=== PATIENT | female | born 1950 | race Caucasian/White ===

== ENCOUNTER 2017-06-10 17:09 | Emergency (ER) | payer SELFPAY ==
[2017-06-10] MEDS ORDERED: Sodium Chloride 0.9% 1000 ML 1,000 ML IV ONE (17:10)
[2017-06-10] MEDS ORDERED: Effient 10 MG TABLET PO ONE (17:10)
[2017-06-10] MEDS ORDERED: Nitrostat 0.4 MG (ED) SL ONE (17:10)
[2017-06-10 17:14] VITALS: BP 162/93; O2SAT 97
[2017-06-10] MEDS ORDERED: LOPRESSOR 5 MG/5 ML INJECTION IV ONE (17:17)
[2017-06-10 17:18] VITALS: PULSE 90
[2017-06-10] MEDS ORDERED: Sodium Chloride 0.9% 1000 ML 1,000 ML ONE (17:19)
[2017-06-10 17:25] LABS: BASOPHIL % 0.5 % (0.0-0.4); Eosinophil % 1.1 % (0.00-5.0); Granulocytes % 70.6 % (36.0-66.0); Lymphocytes % 20.4 % (24.0-44.0); Mean Cell Volume 84.1 fl (78-100); Mean Corpuscular Hemoglobin 25.6 pg (26-32); Mean Platelet Volume 10.3 fl (6-9.5); Monocytes % 7.4 % (0.0-12.0); Platelet Count 325 K/mm3 (150-450); Red Blood Count 4.84 M/mm3 (4.1-5.4); Red Cell Distribution Width 15.6 % (11.5-14.0); White Blood Count 12.1 K/mm3 (4.0-10.5)
--- NOTE | 2017-06-10 17:28 | ERPHSYRPT ---
- History of Present Illness Time Seen by Provider: 06/10/17 17:10 Historian: patient Exam Limitations: clinical condition Patient Subjective Stated Complaint: PT REPROTS INTERMITTANT CHEST PAIN-REPORTS SOB ET DIAPHORESIS-REPORTS PAIN HAS BEEN INTERMITTANT Triage Nursing Assessment: PT PALE WARM ET [id number] NONLABORED-SPEAKING IN COMPLETE SENTECES WITH EASE Physician History: PATIENT WITH A HISTORY OF TYPE 2 DIABETES AND HYPERTENSION COMPLAINS OF SUBSTERNAL CHEST TIGHTNESS FOR 1 WEEK, PAIN RADIATES TO NECK AND LEFT ARM. DENIES DYSPNEA, DIAPHORESIS OR PALPITATIONS. STATES PAIN SCALE 5/10. Timing/Duration: week(s) Activities at Onset: none Quality: tightness Location: substernal Chest Pain Radiation: jaw, neck, arm Severity of Pain-Max: moderate Severity of Pain-Current: moderate Modifying Factors: Improves With: nothing Prior Chest Pain/Cardiac Workup: no prior chest pain Nitro Today/Relief: 0.4 mg x 2 Aspirin Treatment Today: 81 mg x 4, provided at home Allergies/Adverse Reactions: penicillin G Allergy (Severe, Verified 06/10/17 17:14) Home Medications: Lovastatin 20 mg PO DAILY 06/10/17 [History] Metformin HCl 500 mg [Glucophage 500 MG] 500 mg PO DAILY 06/10/17 [History ] Omeprazole 20 MG [Prilosec 20 mg] 20 mg PO DAILY 06/10/17 [History] Tizanidine HCl 4 mg [Zanaflex 4 MG] 4 mg PO DAILY 06/10/17 [History] Valsartan [Diovan] 80 mg PO DAILY 06/10/17 [History] Hx Tetanus, Diphtheria Vaccination/Date Given: No Hx Influenza Vaccination/Date Given: No Hx Pneumococcal Vaccination/Date Given: No Immunizations Up to Date: Yes - Review of Systems Constitutional: No Fever, No Chills Eyes: No Symptoms Ears, Nose, & Throat: No Symptoms Respiratory: No Symptoms, No Cough, No Dyspnea Cardiac: Chest Pain, No Edema, No Syncope Abdominal/Gastrointestinal: No Symptoms, No Abdominal Pain, No Nausea, No Vomiting, No Diarrhea Genitourinary Symptoms: Incontinence, No Dysuria Musculoskeletal: No Symptoms, No Back Pain, No Neck Pain Skin: No Rash Neurological: No Dizziness, No Focal Weakness, No Sensory Changes Psychological: No Symptoms Endocrine: No Symptoms Hematologic/Lymphatic: No Symptoms All Other Systems: Reviewed and Negative - Past Medical History Pertinent Past Medical History: Yes Cardiac History: Hypertension Endocrine Medical History: Diabetes Type II Musculoskeletal History: Fibromyalgia - Past Surgical History Past Surgical History: Yes Musculoskeletal: Orthopedic Surgery - Social History Smoking Status: Never smoker Exposure to second hand smoke: No Drug Use: none Patient Lives Alone: No - Nursing Vital Signs Nursing Vital Signs: Initial Vital Signs Temperature 98.7 F 06/10/17 17:14 Pulse Rate 90 06/10/17 17:14 Respiratory Rate 20 06/10/17 17:14 Blood Pressure 162/93 06/10/17 17:14 O2 Sat by Pulse Oximetry 97 06/10/17 17:14 Pain Scale Pain Intensity 5 - Physical Exam General Appearance: no apparent distress, alert Eye Exam: PERRL/EOMI, eyes nml inspection Ears, Nose, Throat Exam: normal ENT inspection, moist mucous membranes Neck Exam: normal inspection, non-tender, supple, full range of motion Respiratory Exam: normal breath sounds, lungs clear, No respiratory distress Cardiovascular Exam: regular rate/rhythm, normal heart sounds Gastrointestinal/Abdomen Exam: soft, normal bowel sounds (OBESITY), No tenderness, No mass Back Exam: normal inspection, No CVA tenderness, No vertebral tenderness Extremity Exam: normal inspection, normal range of motion Neurologic Exam: alert, oriented x 3, cooperative, normal mood/affect, sensation nml, No motor deficits Skin Exam: normal color, warm, dry SpO2 Interpretation: normal SpO2: 97 Oxygen Delivery: Room Air - Course EKG Interpreted by Me: RATE, Sinus Rhythm, NORMAL AXIS (INFERIOR ST SEGMENT ELEVATION) Ordered Tests: Active Orders 24 hr Category Date Time Status [employer] STAT Care 06/10/17 17:18 Active EKG-ER Only STAT Care 06/10/17 17:17 Active Oxygen-ED Only NASAL CANNULA 2 lpm Care 06/10/17 17:17 Active CBC W DIFF Stat Lab 06/10/17 17:15 Completed CMP Stat Lab 06/10/17 17:15 Received PROTIME WITH INR Stat Lab 06/10/17 17:15 Completed TROPONIN Q3H Lab 06/10/17 17:15 Received TROPONIN Q3H Lab 06/10/17 20:30 Ordered TROPONIN Q3H Lab 06/10/17 23:30 Ordered TROPONIN Q3H Lab 06/11/17 02:30 Ordered TROPONIN Q3H Lab 06/11/17 05:30 Ordered Medication Summary Generic Name Dose Route Start Last Admin Trade Name Alan PRN Reason Stop Dose Admin Sodium Chloride 1,000 mls @ 50 mls/hr 06/10/17 17:30 06/10/17 17:34 Sodium Chloride 0.9% 1000 Ml IV 07/10/17 17:29 50 mls/hr .Q20H CAROLE Administration Discontinued Medications Generic Name Dose Route Start Last Admin Trade Name Freq PRN Reason Stop Dose Admin Metoprolol Tartrate 5 mg 06/10/17 17:17 06/10/17 17:34 Lopressor 5 Mg/5 Ml Injection IV 06/10/17 17:18 5 mg STAT ONE Administration Lab/Rad Data: Laboratory Result Diagrams 06/10/17 17:15 Laboratory Results 06/10/17 06/10/17 Range/Units 17:15 17:15 WBC 12.1 H (4.0-10.5) K/mm3 RBC 4.84 (4.1-5.4) M/mm3 Hgb 12.4 (12.0-16.0) gm/dl Hct 40.7 (35-47) % MCV 84.1 (78-100) fl MCH 25.6 L (26-32) pg MCHC 30.5 L (32-36) g/dl RDW 15.6 H (11.5-14.0) % Plt Count 325 (150-450) K/mm3 MPV 10.3 H (6-9.5) fl Gran % 70.6 H (36.0-66.0) % Lymphocytes % 20.4 L (24.0-44.0) % Monocytes % 7.4 (0.0-12.0) % Eosinophils % 1.1 (0.00-5.0) % Basophils % 0.5 (0.0-0.4) % Basophils # 0.06 (0-0.4) INR 1.18 (0.8-3.0) - Progress Progress Note: 06/10/17 17:32 ADMINISTERED NTG 0.4 SL X 2, IV LOPRESSOR 5MG, Discussed with : Other (DISCUSSED WITH DR HANNA AT 1720 OF [facility] ACCEPTS TRANSFER VIA [facility]) - Departure Time of Disposition: 17:30 Departure Disposition: Transfer Clinical Impression: ACUTE INFERIOR MYOCARDIAL INFARCTION Condition: Stable Critical Care Time: No Critical Care Time(excluding separately billable procedures): ___ minutes (18) Referrals: AVA CORONEL [Primary Care Provider] -
[2017-06-10] MEDS ORDERED: Sodium Chloride 0.9% 1000 ML 1,000 ML IV SCH (17:30)
[2017-06-10 17:31] LABS: INR 1.18 (0.8-3.0); PROTIME 13.1 SECONDS (9.95-12.35)
[2017-06-10 17:40] LABS: ALBUMIN 3.6 g/dL (3.4-5.0); ALKALINE PHOSPHATASE 114 U/L (46-116); ANION GAP 15.1 MEQ/L (5-15); BLOOD UREA NITROGEN 18 mg/dL (9-20); CHLORIDE 103 mEq/L (98-107); Carbon Dioxide 28.7 mEq/L (21-32); Glucose 104 MG/DL (70-110); Potassium 4.3 mEq/L (3.5-5.1); SGOT/AST 68 U/L (15-37); SGPT/ALT 52 U/L (12-78); SODIUM 143 mEq/L (136-145); Total Protein 7.8 gm/dL (6.4-8.2)
== END 2017-06-10 17:27 | disposition short-term general hospital (02) ==
LOC: ED 17:09
DX: I21.19 ST elevation (STEMI) myocardial infarction involving other coronary artery of inferior wall (principal); R07.9 Chest pain, unspecified; I10 Essential (primary) hypertension; E11.9 Type 2 diabetes mellitus without complications; Z79.899 Other long term (current) drug therapy
CPT/HCPCS: 36000; 36415; 80053; 82962; 84484; 85025; 85610; 93005; 93041; 99285; A9270-GY

== ENCOUNTER 2021-06-19 12:59 | Emergency (ER) | payer MEDICARE ==
[2021-06-19] MEDS ORDERED: DECADRON 10MG INJ. IV ONE (13:38)
[2021-06-19 13:49] LABS: Absolute Neutrophil Ct (ANC) 6.38 (1.4-6.9); BASOPHIL % 0.1 % (0.0-0.4); Basophil (Absolute #) 0.01 (0-0.4); Eosinophil (Absolute #) 0 (0-0.5); Hematocrit 37.3 % (35-47); Hemoglobin 10.7 gm/dl (12.0-16.0); Lymphocyte (Absolute #) 0.79 (1.0-4.6); Lymphocytes % 10.7 % (24.0-44.0); Mean Cell Volume 78.2 fl (78-100); Mean Corpuscular Hemoglobin 22.4 pg (26-32); Mean Corpuscular Hgb Concent. 28.7 g/dl (32-36); Mean Platelet Volume 9.9 fl (7.5-11.0); Monocyte (Absolute #) 0.18 (0.0-1.3); Monocytes % 2.4 % (0.0-12.0); Neutrophil % 86.8 % (36.0-66.0); Platelet Count 271 K/mm3 (150-450); Red Blood Count 4.77 M/mm3 (4.1-5.4); Red Cell Distribution Width 18.4 % (11.5-14.0); White Blood Count 7.4 K/mm3 (4.0-10.5)
--- NOTE | 2021-06-19 13:53 | ERPHSYRPT ---
- History of Present Illness Time Seen by Provider: 06/19/21 13:11 Source: patient Exam Limitations: no limitations Patient Subjective Stated Complaint: SOB Triage Nursing Assessment: Patient brought back to ED via w/c and transferred to bed with assist of 1. Patient A+O X3. Patient's skin flushed, warm and dry. Patient complains of SOB that has increased over the past few days. Patient also complains of fever, cough, SOB, bodyaches, headaches, loss of taste/smell. Patient states she took a home covid test on 06/10/2021 which was positive. L ungs clear a/p michael. O2 86% on room air. Patient placed on O2 at 4 liters per n/c. Physician History: 70 years old female with history of coronary artery disease status post stenting, hypertension, diabetes mellitus, GERD, morbid obesity, unvaccinated against COVID-19 presented in the ER with 12 days history of progressively worsening shortness of breath. Patient took home COVID-19 test which came back positive on June 10. Patient reports for the last few days her shortness of breath is getting worse initially with activity and now even at resting and she has been using 5 L oxygen at home which was originally prescribed to her [id number]. She does feel a little better with oxygen but still feel she is not getting enough air. Also have subjective feeling of fever chills malaise, headache, body aches, loss of taste and smell. Denies any chest pain but s oreness because of repeated coughing up minimal productive sputum clear color. Patient's oxygen saturation was 86% on room air on presentation and currently on 5 L with sats around 95%. Timing/Duration: day(s) (12), constant, gradual onset, worse Activities at Onset: activity, rest Severity of Dyspnea-Max: moderate Severity of Dyspnea-Current: moderate Possible Cause: illness exposure Modifying Factors: Improves With: oxygen. Worsens With: coughing, deep breath, exertion Associated Symptoms: cough, chest pain/discomfort, heaviness, painful breathing, productive cough, tightness Allergies/Adverse Reactions: penicillin G Allergy (Severe, Verified 06/19/21 13:11) Home Medications: Lovastatin 20 mg PO DAILY 06/10/17 [History] Metformin HCl 500 mg [Glucophage 500 MG] 500 mg PO DAILY 06/10/17 [History] Omeprazole 20 MG [Prilosec 20 mg] 20 mg PO DAILY 06/10/17 [History] Tizanidine HCl 4 mg [Zanaflex 4 MG] 4 mg PO DAILY 06/10/17 [History] Valsartan [Diovan] 80 mg PO DAILY 06/10/17 [History] Hx Tetanus, Diphtheria Vaccination/Date Given: No Hx Influenza Vaccination/Date Given: No Hx Pneumococcal Vaccination/Date Given: No Immunizations Up to Date: Yes Travel Risk - International Travel Have you traveled outside of the country in past 3 weeks: No - Coronavirus Screening Are you exhibiting any of the following symptoms?: Yes Symptoms: Headaches/Body Aches/Fatigue Close contact with a COVID-19 positive Pt in past 14-21 Days: Yes - Vaccine Status Have you recieved a Covid-19 vaccination: No - Review of Systems Constitutional: Fever, Chills, Fatigue, Weakness Eyes: No Symptoms Ears, Nose, & Throat: Nose Congestion Respiratory: Cough, Dyspnea, Dyspnea on Exertion (SUAREZ), Wheezing Cardiac: Chest Pain Abdominal/Gastrointestinal: No Symptoms Genitourinary Symptoms: No Symptoms Musculoskeletal: Myalgias Skin: No Symptoms Neurological: No Symptoms Psychological: No Symptoms Endocrine: No Symptoms Hematologic/Lymphatic: No Symptoms Immunological/Allergic: No Symptoms - Past Medical History Pertinent Past Medical History: Yes Cardiac History: Hypertension Endocrine Medical History: Diabetes Type II Musculoskeletal History: Fibromyalgia - Past Surgical History Past Surgical History: Yes Musculoskeletal: Orthopedic Surgery - Social History Smoking Status: Never smoker Exposure to second hand smoke: No Drug Use: none Patient Lives Alone: No - Female History Hx Now: No - Nursing Vital Signs Nursing Vital Signs: Initial Vital Signs Temperature 99.1 F 06/19/21 13:12 Pulse Rate 86 06/19/21 13:12 Respiratory Rate 18 06/19/21 13:12 Blood Pressure 129/71 06/19/21 13:12 O2 Sat by Pulse Oximetry 86 L 06/19/21 13:12 Pain Scale Pain Intensity 0 - Physical Exam General Appearance: mild distress, alert Eye Exam: PERRL/EOMI, eyes nml inspection Ears, Nose, Throat Exam: hearing grossly normal, pharyngeal erythema Neck Exam: normal inspection, non-tender, full range of motion Respiratory Exam: diminished breath sounds, crackles/rales, rhonchi, wheezing Cardiovascular/Chest Exam: normal heart sounds, regular rate/rhythm Abdominal/Gastrointestinal Exam: soft, No tenderness Extremity Exam: non-tender, normal range of motion Neurologic Exam: alert, oriented x 3, cooperative Skin Exam: normal color SpO2 Interpretation: hypoxic, O2 applied SpO2: 86 O2 Delivery: Nasal Cannula - Course EKG Interpreted by Me: RATE (83), NORMAL AXIS, NORMAL INTERVALS, Other (Nonspecific T wave changes) Ordered Tests: Active Orders 24 hr Category Date Time Status [employer] STAT Care 06/19/21 13:38 Active EKG-ER Only STAT Care 06/19/21 13:37 Active IV Insertion STAT Care 06/19/21 13:37 Active Oxygen-ED Only Nasal Cannula 5 lpm Care 06/19/21 13:37 Active CHEST 1 VIEW (PORTABLE) Stat Exams 06/19/21 13:37 Taken BLOOD CULTURE Stat Lab 06/19/21 14:10 Received CBC W DIFF Stat Lab 06/19/21 13:45 Completed CMP Stat Lab 06/19/21 13:45 Completed D-DIMER QUANTITATIVE Stat Lab 06/19/21 13:45 Completed Lactic Acid Stat Lab 06/19/21 13:37 Completed Lactic Acid Stat Lab 06/19/21 15:49 Received NT PRO BNP Stat Lab 06/19/21 13:45 Completed TROPONIN Q3H Lab 06/19/21 13:45 Completed TROPONIN Q3H Lab 06/19/21 16:45 Ordered TROPONIN Q3H Lab 06/19/21 19:45 Ordered TROPONIN Q3H Lab 06/19/21 22:45 Ordered TROPONIN Q3H Lab 06/20/21 01:45 Ordered UA W/RFX UR CULTURE Stat Lab 06/19/21 13:37 Ordered Medication Summary Discontinued Medications Generic Name Dose Route Start Last Admin Trade Name Freq PRN Reason Stop Dose Admin Aspirin 324 mg 06/19/21 15:26 06/19/21 15:33 Baby Aspirin 81 Mg Chew PO 06/19/21 15:27 324 mg STAT ONE Administration Aspirin Confirm 06/19/21 15:29 Baby Aspirin 81 Mg Chew Administered 06/19/21 15:30 Dose 324 mg .ROUTE .STK-MED ONE Dexamethasone Sodium Phosphate 6 mg 06/19/21 13:38 06/19/21 13:55 Decadron 10mg Inj. IV 06/19/21 13:39 6 mg STAT ONE Administration Dexamethasone Sodium Phosphate Confirm 06/19/21 13:54 Decadron 10mg Inj. Administered 06/19/21 13:55 Dose 10 mg .ROUTE .[facility] Levofloxacin 500 mg 06/19/21 15:26 06/19/21 15:33 Levofloxacin 250mg Tablet PO 06/19/21 15:27 500 mg STAT ONE Administration Levofloxacin Confirm 06/19/21 15:29 Levofloxacin 250mg Tablet Administered 06/19/21 15:30 Dose 500 mg .ROUTE .[facility] Lab/Rad Data: Laboratory Result Diagrams 06/19/21 13:45 06/19/21 13:45 Laboratory Results 06/19/21 06/19/21 06/19/21 Range/Units 13:45 13:45 13:45 WBC (4.0-10.5) K/mm3 RBC (4.1-5.4) M/mm3 Hgb (12.0-16.0) gm/dl Hct (35-47) % MCV (78-100) fl MCH (26-32) pg MCHC (32-36) g/dl RDW (11.5-14.0) % Plt Count (150-450) K/mm3 MPV (7.5-11.0) fl Gran % (36.0-66.0) % Eos # (Auto) (0-0.5) Absolute Lymphs (auto) (1.0-4.6) Absolute Monos (auto) (0.0-1.3) Lymphocytes % (24.0-44.0) % Monocytes % (0.0-12.0) % Eosinophils % (0.00-5.0) % Basophils % (0.0-0.4) % Absolute Granulocytes (1.4-6.9) Basophils # (0-0.4) D-Dimer 1503 H* (215-500) ng/mL Sodium 140 (137-145) mmol/L Potassium 4.5 (3.5-5.1) mmol/L Chloride 104 (98-107) mmol/L Carbon Dioxide 24 (22-30) mmol/L Anion Gap 16.7 H (5-15) MEQ/L BUN 34 H (7-17) mg/dL Creatinine 1.55 H (0.52-1.04) mg/dL Estimated GFR 35.2 ML/MIN Glucose 123 H (74-106) mg/dL Lactic Acid (0.4-2.0) Calcium 8.8 (8.4-10.2) mg/dL Total Bilirubin 0.70 (0.2-1.3) mg/dL AST 46 H (14-36) U/L ALT 19 (0-35) U/L Alkaline Phosphatase 115 (38-126) U/L Troponin I 0.058 H* (0.000-0.034) ng/mL NT-Pro-B Natriuret Pep 532 (0-900) pg/mL Serum Total Protein 7.5 (6.3-8.2) g/dL Albumin 4.0 (3.5-5.0) g/dL Slides for Path Review 06/19/21 06/19/21 Range/Units 13:45 13:37 WBC 7.4 (4.0-10.5) K/mm3 RBC 4.77 (4.1-5.4) M/mm3 Hgb 10.7 L (12.0-16.0) gm/dl Hct 37.3 (35-47) % MCV 78.2 (78-100) fl MCH 22.4 L (26-32) pg MCHC 28.7 L (32-36) g/dl RDW 18.4 H (11.5-14.0) % Plt Count 271 (150-450) K/mm3 MPV 9.9 (7.5-11.0) fl Gran % 86.8 H (36.0-66.0) % Eos # (Auto) 0 (0-0.5) Absolute Lymphs (auto) 0.79 L (1.0-4.6) Absolute Monos (auto) 0.18 (0.0-1.3) Lymphocytes % 10.7 L (24.0-44.0) % Monocytes % 2.4 (0.0-12.0) % Eosinophils % 0.0 (0.00-5.0) % Basophils % 0.1 (0.0-0.4) % Absolute Granulocytes 6.38 (1.4-6.9) Basophils # 0.01 (0-0.4) D-Dimer (215-500) ng/mL Sodium (137-145) mmol/L Potassium (3.5-5.1) mmol/L Chloride (98-107) mmol/L Carbon Dioxide (22-30) mmol/L Anion Gap (5-15) MEQ/L BUN (7-17) mg/dL Creatinine (0.52-1.04) mg/dL Estimated GFR ML/MIN Glucose (74-106) mg/dL Lactic Acid 1.9 (0.4-2.0) Calcium (8.4-10.2) mg/dL Total Bilirubin (0.2-1.3) mg/dL AST (14-36) U/L ALT (0-35) U/L Alkaline Phosphatase (38-126) U/L Troponin I (0.000-0.034) ng/mL NT-Pro-B Natriuret Pep (0-900) pg/mL Serum Total Protein (6.3-8.2) g/dL Albumin (3.5-5.0) g/dL Slides for Path Review YES - Progress Progress: unchanged Air Movement: poor Progress Note: 06/19/21 15:39 Patient is evaluated for worsening shortness of breath with positive COVID-19 and requiring 4 to 5 L oxygen to keep saturation and mid 90s. She is given IV steroids, work-up showed EKG normal sinus rhythm without any ST elevations. Chest x-ray reviewed by me has bilateral airspace disease more on the right. Official report is pending. Has D-dimer in 1500s and mildly elevated troponin o f 0.058, given aspirin. Patient has mild worsening of renal function from her baseline with a creatinine of 1.5 and GFR of 35. I believe patient needs admission with steroids and possible monoclonal antibodies, antibiotics and VQ scan versus anticoagulation and also trending of cardiac enzymes. Her cardiac enzyme could be secondary to respiratory failure versus PE versus NSTEMI. I have discussed the results and plan of care with patient and her in detail and she/ voiced understanding but refused to stay in the hospital at all or to be transferred anywhere else. Patient states "I cannot stay in the hospital as I have to take care of kids who are under our custody". Discussed with her in detail about the seriousness of condition with bilateral pneumonia and respiratory failure with concern for pulmonary embolism/NSTEMI which would not only lead to worsening of current situation but can lead to which he seems understanding but still wants to leave. I have given her a dose of oral antibiotics and will continue with oral antibiotic/steroid and inhaler, becky garg about blood sugar monitoring. She is advised to find some adult care manager for her kids and may need to return to hospital to be admitted for further evaluation and management of this condition which likely would get worse if not taken care of appropriately at the right time. I have tried to get oxygen for the patient to at least help her breathing at home along with above treatment which is not enough but is better than not having anything as she does not want to be hospitalized at all. Blood Culture(s) Obtained: Yes Antibiotics given: Yes Counseled pt/family regarding: lab results, diagnosis, need for follow-up, rad results - Departure Departure Disposition: AMA Clinical Impression: Pneumonia due to COVID-19 virus, NSTEMI (non-ST elevated myocardial infarction), Elevated d-dimer Respiratory failure Qualifiers: Chronicity: acute Respiratory failure complication: hypoxia Qualified Code(s): J96.01 - Acute respiratory failure with hypoxia Condition: Serious Critical Care Time: No Referrals: AAV CORONEL NP [Primary Care Provider] - (Call tomorrow for reevaluation) Instructions: Coronavirus Disease 2019 (COVID-19) (DC) Additional Instructions: Use oxygen all the time. Continue with steroid and antibiotics. Monitor your blood sugar regularly and if elevated talk to your primary care doctor and may need increased dose of your antidiabetic medications. Return to ER for increasing shortness of breath/cough or if develop chest pain/palpitations/persistent fever etc. you are at high risk for worsening respiratory failure/heart attack/blood clot in lungs, return to ER for reevaluation and needs admission to address these issues. Prescriptions: Dexamethasone [Decadron] 6 mg PO DAILY #5 tablet Albuterol 8 gm Mdi Hfa [Ventolin Hfa MDI] 8 gm IH Q4H #1 inh Azithromycin 250 mg [Zithromax 250 MG TABLET] 250 mg PO ZPACK #6 tablet
[2021-06-19] MEDS ORDERED: DECADRON 10MG INJ. ONE (13:54)
[2021-06-19 14:10] LABS: ANION GAP 16.7 MEQ/L (5-15); BILIRUBIN,TOTAL 0.7 mg/dL (0.2-1.3); Calcium 8.8 mg/dL (8.4-10.2); Creatinine 1 1.55 mg/dL (0.52-1.04); EST GLOMERULAR FILTRATION RATE 35.2 ML/MIN; Potassium 4.5 mmol/L (3.5-5.1); Total Protein 7.5 g/dL (6.3-8.2)
[2021-06-19 14:39] LABS: Slide Review 1 YES
[2021-06-19] MEDS ORDERED: Levofloxacin 250MG Tablet PO ONE (15:26)
[2021-06-19] MEDS ORDERED: BABY ASPIRIN 81 MG CHEW PO ONE (15:26)
[2021-06-19] MEDS ORDERED: BABY ASPIRIN 81 MG CHEW ONE (15:29)
[2021-06-19] MEDS ORDERED: Levofloxacin 250MG Tablet ONE (15:29)
[2021-06-19 15:44] VITALS: O2SAT 86
[2021-06-19 16:35] VITALS: BP 141/72; PULSE 84
--- NOTE | 2021-06-19 19:46 | XRAY ---
Indication: Short of breath. Covid 19. Comparison: June 19, 2017 Portable chest demonstrates new moderate diffuse bilateral airspace disease, right greater than left. No consolidation/large effusion. Heart again borderline enlarged. Bony thorax intact again with moderate degenerative changes.
== END 2021-06-19 18:08 | disposition home or self-care (01) ==
LOC: ED 12:59
DX: J12.82 Pneumonia due to coronavirus disease 2019 (principal); I21.4 Non-ST elevation (NSTEMI) myocardial infarction; R79.1 Abnormal coagulation profile; J96.01 Acute respiratory failure with hypoxia; I25.10 Atherosclerotic heart disease of native coronary artery without angina pectoris; I10 Essential (primary) hypertension; E11.9 Type 2 diabetes mellitus without complications; R51.9 Headache, unspecified; M79.18 Myalgia, other site; R43.8 Other disturbances of smell and taste; R07.9 Chest pain, unspecified; Z79.899 Other long term (current) drug therapy
CPT/HCPCS: 36000; 36415; 71045; 80053; 83605; 83880; 84484; 85025; 85379; 87040; 93005; 93041; 96374; 99284; J1100; A9270-GY

== ENCOUNTER 2024-02-26 19:15 | Observation (INO) | payer MEDICARE ==
[2024-02-26 20:00] LABS: A-aADO2 130; ABG HEMOGLOBIN 4.4; ARTERIAL BLD GAS O2 SATURATION 98.8 % (95-100); ARTERIAL BLOOD GAS BASE EXCESS -9.1 (-2.0-2.0); ARTERIAL BLOOD GAS FIO2 40 %; ARTERIAL BLOOD GAS PCO2 38 mmHg (35-45); ARTERIAL BLOOD GAS PO2 108 mmHg (75-100); ARTERIAL BLOOD GAS pH 7.26 (7.35-7.45); CARBOXYHEMOGLOBIN 1.1 % THgb (0.0-6.9); HCO3- 17.1 (22-28); HGB O2 SAT 96.4 g/dF (94-100); Methhemoglobin 1.4 % (1.4-1.5); paO2 pAO1 0.45
[2024-02-26 20:01] LABS: ABG SITE LRA; ALLEN TEST OK? YES
[2024-02-26 20:03] LABS: Absolute Neutrophil Ct (ANC) 10.92 x10^3/uL (1.56-6.13); BASOPHIL % 0.4 % (0.1-1.2); Basophil (Absolute #) 0.06 x10^3/uL (0.01-0.08); Eosinophil % 0.2 % (0.7-5.8); Eosinophil (Absolute #) 0.03 x10^3/uL (0.04-0.36); Hematocrit 13.9 % (34.1-44.9); IMMATURE GRAN # 0.34 x10^3u/L (0.001-0.031); IMMATURE GRAN % 2.4 % (0.001-0.429); Mean Cell Volume 90.3 fL (79.4-94.8); Mean Corpuscular Hgb Concent. 28.8 g/dL (32.2-35.5); Mean Platelet Volume 8.8 fL (9.4-12.3); Monocyte (Absolute #) 0.92 x10^3/uL (0.24-0.86); Monocytes % 6.4 % (4.7-12.5); NUCLEATED RBC # 0.41 x10^3u/L (0.00-0.012); NUCLEATED RBC % 2.9 % (0.00-0.2); Neutrophil % 76.6 % (34.0-71.1); Platelet Count 314 x10^3/uL (182-369); Red Blood Count 1.54 x10^6/uL (3.93-5.22); Red Cell Distribution Width 17.5 % (11.7-14.4); White Blood Count 14.3 x10^3/uL (3.98-10.04)
[2024-02-26 20:18] LABS: ALBUMIN 3.1 g/dL (3.5-5.0); ALKALINE PHOSPHATASE 69 U/L (38-126); ANION GAP 16.9 MEQ/L (5-15); BLOOD UREA NITROGEN 38 mg/dL (7-17); CHLORIDE 111 mmol/L (98-107); Calcium 8.8 mg/dL (8.4-10.2); Creatinine 1 2.16 mg/dL (0.52-1.04); EST GLOMERULAR FILTRATION RATE 23.8 ML/MIN; ETHYL ALCOHOL < 10 mg/dL (0-10); Glucose 136 mg/dL (74-106); Potassium 4.7 mmol/L (3.5-5.1); SGOT/AST 20 U/L (14-36); SGPT/ALT 14 U/L (0-35); SODIUM 137 mmol/L (135-145); Total Protein 5.8 g/dL (6.3-8.2)
[2024-02-26 20:25] LABS: Carbon Dioxide 15 mmol/L (22-30)
--- NOTE | 2024-02-26 20:47 | ERPHSYRPT ---
- History of Present Illness Time Seen by Provider: 02/26/24 19:20 Source: patient Exam Limitations: no limitations Patient Subjective Stated Complaint: C/O SOB that patient states has been going on for a few days. called EMS and states that patient has been fatigued and SOB all day today. EMS reports that patient was blue upon their arrival to patient's home. Triage Nursing Assessment: Patient arrived by ambulance. She is drowsy, falls asleep often during assessment but easily aroused and answers all questions appropriately. Patient does not appear SOB. 02 sats 98% on room air, 02 applied at 2L per N/C and 02 sats increased to 100%. Patient is pale. Odor of kerosene or some sort of diesel noted upon patient's arrival but has since resolved. BLE wrapped; patient indicates she has wounds to her BLE that are treated by Dr. Mendez. Physician History: 73-year-old female presents emergency department via EMS for evaluation of shortness of breath and fatigue that has been progressive over the past 3 days. Upon EMS arrival patient had cyanotic fingers. Oxygen applied. Upon arrival to our ED patient was sleepy however easily aroused and conversant. Patient denies pain. No chest pain. No active shortness of breath. No nausea vomiting or diaphoresis. Patient has never had a colonoscopy. She reports that she has not observed blood in her stool however patient's states that there is blood in her stool after every bowel movement. He reports that patient has not able to observe the blood due to bad eyesight. He states that patient needs bilateral cataract surgery. produced a photo of blood in toilet after patient's bowel movement Allergies/Adverse Reactions: penicillin G Allergy (Severe, Verified 02/26/24 19:19) Home Medications: Aspirin EC 81 mg [Ecotrin 81 mg] 81 mg PO DAILY 02/27/24 [History] Carvedilol 12.5 mg [Coreg 12.5 mg] 12.5 mg PO DAILY 02/27/24 [History] Clopidogrel Bisulfate [Clopidogrel] 75 mg PO DAILY 02/27/24 [History] Duloxetine HCl [Cymbalta] 60 mg PO DAILY 02/27/24 [History] Empagliflozin [Jardiance] 10 mg PO DAILY 02/27/24 [History] Furosemide 40 mg [Lasix 40 MG] 40 mg PO DAILY 02/27/24 [History] Metformin HCl 500 mg [Glucophage 500 MG] 500 mg PO BID 02/27/24 [History] Nitroglycerin 0.4 mg Tablet [Nitrostat 0.4 MG Tablet] 0.4 mg PO Q5MIN PRN MR X 3 PRN 02/27/24 [History] Potassium Chloride 10 meq PO DAILY 02/27/24 [History] Rosuvastatin Calcium 20 mg PO DAILY 02/27/24 [History] Valsartan 80 mg PO DAILY 02/27/24 [History] Hx Tetanus, Diphtheria Vaccination/Date Given: Yes Hx Influenza Vaccination/Date Given: No Hx Pneumococcal Vaccination/Date Given: No Immunizations Up to Date: Yes Travel Risk - International Travel Have you traveled outside of the country in past 3 weeks: No - Emerging Infectious Disease Are you exhibiting symptoms associated with any current EIDs: Yes Symptoms: Shortness of Breath Comment: fatigue - Review of Systems Constitutional: No Symptoms, No Fever, No Chills Eyes: No Symptoms Ears, Nose, & Throat: No Symptoms Respiratory: No Symptoms, No Cough, No Dyspnea Cardiac: No Symptoms, No Chest Pain, No Edema, No Syncope Abdominal/Gastrointestinal: No Symptoms, No Abdominal Pain, No Nausea, No Vom iting, No Diarrhea Genitourinary Symptoms: No Symptoms, No Dysuria Musculoskeletal: No Symptoms, No Back Pain, No Neck Pain Skin: No Symptoms, No Rash Neurological: No Symptoms, No Dizziness, No Focal Weakness, No Sensory Changes Psychological: No Symptoms Endocrine: No Symptoms Hematologic/Lymphatic: No Symptoms Immunological/Allergic: No Symptoms All Other Systems: Reviewed and Negative - Past Medical History Pertinent Past Medical History: Yes Cardiac History: Coronary Artery Disease, Hypertension, Myocardial Infarction ([place]) Endocrine Medical History: Diabetes Type II Musculoskeletal History: Fibromyalgia Other Medical History: Wounds to BLE that are being treated by Dr. Mendez. Ad Copy Writer: Dr. Mercer - Past Surgical History Past Surgical History: Yes Cardiac: Cardiac Catheterization, Cardiac Stent Musculoskeletal: Orthopedic Surgery Other Surgical History: BACK, HANDS - Social History Smoking Status: Never smoker Exposure to second hand smoke: No Drug Use: none Patient Lives Alone: No - Social Determinants of Health Will the patient participate in the screening: Declined to provide - Nursing Vital Signs Nursing Vital Signs: Initial Vital Signs Temperature 97.4 F 02/26/24 19:15 Pulse Rate 67 02/26/24 19:15 Respiratory Rate 20 02/26/24 19:15 Blood Pressure 74/42 02/26/24 19:15 O2 Sat by Pulse Oximetry 98 02/26/24 19:15 Pain Scale Pain Intensity 0 - Physical Exam General Appearance: no apparent distress, alert Eye Exam: PERRL/EOMI, eyes nml inspection Ears, Nose, Throat Exam: normal ENT inspection, TMs normal, pharynx normal, moist mucous membranes Neck Exam: normal inspection, non-tender, supple, full range of motion Respiratory Exam: normal breath sounds, lungs clear, airway intact, No respiratory distress Cardiovascular Exam: regular rate/rhythm, normal heart sounds, normal peripheral pulses Gastrointestinal/Abdomen Exam: soft, normal bowel sounds, No tenderness, No mass Back Exam: normal inspection, normal range of motion, No CVA tenderness, No vertebral tenderness Extremity Exam: normal inspection, normal range of motion, pelvis stable, other (Addressed chronic lower extremity wounds currently being managed by our buggy runner) Neurologic Exam: alert, oriented x 3, cooperative, normal mood/affect, sensation nml, No motor deficits Skin Exam: normal color, warm, dry, No rash Lymphatic Exam: No adenopathy SpO2 Interpretation: normal SpO2: 100 O2 Delivery: Room Air - Course Nursing assessment & vital signs reviewed: Yes EKG Interpreted by Me: RATE (74 accelerated junctional rhythm), NORMAL AXIS, NORMAL INTERVALS, NORMAL QRS Ordered Tests: Active Orders 24 hr Category Date Time Status Acds Block 1 Operator STAT Care 02/26/24 19:45 Active Cath [Catheter-[place]] STAT Care 02/27/24 01:29 Active EKG-ER Only STAT Care 02/26/24 19:44 Active IV Insertion STAT Care 02/26/24 19:44 Active Pulse Oximetry (ED) STAT Care 02/26/24 19:44 Active ABG [ARTERIAL BLOOD GASES] Stat Lab 02/26/24 19:46 Completed CBC W DIFF Stat Lab 02/26/24 19:55 Completed CMP Stat Lab 02/26/24 19:55 Completed CULTURE,URINE Stat Lab 02/27/24 01:34 Received D-DIMER QUANTITATIVE Stat Lab 02/26/24 19:55 Completed ETHYL ALCOHOL Stat Lab 02/26/24 19:55 Completed Lactic Acid Stat Lab 02/26/24 19:44 Completed Lactic Acid Stat Lab 02/26/24 21:57 Completed NT PRO BNPII Stat Lab 02/26/24 19:55 Completed TROPONIN Q4H Lab 02/26/24 19:55 Completed TROPONIN Q4H Lab 02/26/24 23:20 Completed TROPONIN Q4H Lab 02/27/24 03:45 Ordered UA W/RFX UR CULTURE Stat Lab 02/27/24 01:34 Received Transfer Order Routine Transfer 02/27/24 Ordered Medication Summary Discontinued Medications Generic Name Dose Route Start Last Admin Trade Name Amilcarq PRN Reason Stop Dose Admin Furosemide 20 mg 02/27/24 00:40 02/27/24 00:44 Furosemide 40 Mg/4 Ml Vial IV 02/27/24 00:41 20 mg STAT ONE Administration Furosemide Confirm 02/27/24 00:43 Furosemide 40 Mg/4 Ml Vial Administered 02/27/24 00:44 Dose 40 mg .ROUTE .STK-MED ONE Sodium Chloride Confirm 02/26/24 21:55 Sodium Chloride 0.9% 250 Ml Administered 02/26/24 21:56 Dose 250 mls @ ud IV .STK-MED ONE Pantoprazole Sodium 40 mg 02/26/24 20:56 02/26/24 21:00 Pantoprazole 40 Mg Vial IV 02/26/24 20:57 40 mg STAT ONE Administration Pantoprazole Sodium Confirm 02/26/24 21:00 Pantoprazole 40 Mg Vial Administered 02/26/24 21:01 Dose 40 mg IV .STK-MED ONE Lab/Rad Data: Laboratory Result Diagrams 02/26/24 19:55 02/26/24 19:55 Laboratory Results 02/26/24 02/26/24 02/26/24 Range/Units 23:20 21:57 20:28 WBC (3.98-10.04) x10^3/uL RBC (3.93-5.22) x10^6/uL Hgb (11.2-15.7) g/dL Hct (34.1-44.9) % MCV (79.4-94.8) fL MCH (25.6-32.2) pg MCHC (32.2-35.5) g/dL RDW (11.7-14.4) % Plt Count (182-369) x10^3/uL MPV (9.4-12.3) fL Gran % (34.0-71.1) % Immature Gran % (Auto) (0.001-0.429) % Nucleat RBC Rel Count (0.00-0.2) % Eos # (Auto) (0.04-0.36) x10^3/uL Immature Gran # (Auto) (0.001-0.031) x10^3u/L Absolute Lymphs (auto) (1.18-3.74) x10^3/uL Absolute Monos (auto) (0.24-0.86) x10^3/uL Absolute Nucleated RBC (0.00-0.012) x10^3u/L Lymphocytes % (19.3-51.7) % Monocytes % (4.7-12.5) % Eosinophils % (0.7-5.8) % Basophils % (0.1-1.2) % Absolute Granulocytes (1.56-6.13) x10^3/uL Basophils # (0.01-0.08) x10^3/uL D-Dimer (0.0-0.50) mg/L Puncture Site pCO2 (35-45) mmHg pO2 (75-100) mmHg Base Excess (-2.0-2.0) O2 Saturation (94-100) g/dF ABG pH (7.35-7.45) ABG HCO3 (22-28) ABG O2 Sat (Measured) (95-100) % Quentin Test A-a Gradient a/A Ratio Hemoglobin Carboxyhemoglobin (0.0-6.9) % THgb Methemoglobin (1.4-1.5) % Potassium (3.5-5.1) Temperature C POC O2 Flow Rate % Sodium (135-145) mmol/L Chloride (98-107) mmol/L Carbon Dioxide (22-30) mmol/L Anion Gap (5-15) MEQ/L BUN (7-17) mg/dL Creatinine (0.52-1.04) mg/dL Estimated GFR ML/MIN Glucose (74-106) mg/dL Lactic Acid 1.0 (0.4-2.0) Calcium (8.4-10.2) mg/dL Total Bilirubin (0.2-1.3) mg/dL AST (14-36) U/L ALT (0-35) U/L Alkaline Phosphatase (38-126) U/L Troponin I 0.562 H* (0.000-0.033) ng/mL NT-Pro-B Natriuret Pep (<300) pg/mL Serum Total Protein (6.3-8.2) g/dL Albumin (3.5-5.0) g/dL Ethyl Alcohol (0-10) mg/dL Slides for Path Review ABO Group Rh Factor Antibody Screen (NEGATIVE) Crossmatch COMPATIBLE (COMPATIBLE) 02/26/24 02/26/24 02/26/24 Range/Units 20:28 20:28 19:55 WBC (3.98-10.04) x10^3/uL RBC (3.93-5.22) x10^6/uL Hgb (11.2-15.7) g/dL Hct (34.1-44.9) % MCV (79.4-94.8) fL MCH (25.6-32.2) pg MCHC (32.2-35.5) g/dL RDW (11.7-14.4) % Plt Count (182-369) x10^3/uL MPV (9.4-12.3) fL Gran % (34.0-71.1) % Immature Gran % (Auto) (0.001-0.429) % Nucleat RBC Rel Count (0.00-0.2) % Eos # (Auto) (0.04-0.36) x10^3/uL Immature Gran # (Auto) (0.001-0.031) x10^3u/L Absolute Lymphs (auto) (1.18-3.74) x10^3/uL Absolute Monos (auto) (0.24-0.86) x10^3/uL Absolute Nucleated RBC (0.00-0.012) x10^3u/L Lymphocytes % (19.3-51.7) % Monocytes % (4.7-12.5) % Eosinophils % (0.7-5.8) % Basophils % (0.1-1.2) % Absolute Granulocytes (1.56-6.13) x10^3/uL Basophils # (0.01-0.08) x10^3/uL D-Dimer (0.0-0.50) mg/L Puncture Site pCO2 (35-45) mmHg pO2 (75-100) mmHg Base Excess (-2.0-2.0) O2 Saturation (94-100) g/dF ABG pH (7.35-7.45) ABG HCO3 (22-28) ABG O2 Sat (Measured) (95-100) % Quentin Test A-a Gradient a/A Ratio Hemoglobin Carboxyhemoglobin (0.0-6.9) % THgb Methemoglobin (1.4-1.5) % Potassium (3.5-5.1) Temperature C POC O2 Flow Rate % Sodium (135-145) mmol/L Chloride (98-107) mmol/L Carbon Dioxide (22-30) mmol/L Anion Gap (5-15) MEQ/L BUN (7-17) mg/dL Creatinine (0.52-1.04) mg/dL Estimated GFR ML/MIN Glucose (74-106) mg/dL Lactic Acid (0.4-2.0) Calcium (8.4-10.2) mg/dL Total Bilirubin (0.2-1.3) mg/dL AST (14-36) U/L ALT (0-35) U/L Alkaline Phosphatase (38-126) U/L Troponin I (0.000-0.033) ng/mL NT-Pro-B Natriuret Pep 4680 (<300) pg/mL Serum Total Protein (6.3-8.2) g/dL Albumin (3.5-5.0) g/dL Ethyl Alcohol (0-10) mg/dL Slides for Path Review ABO Group O Rh Factor POSITIVE Antibody Screen NEGATIVE (NEGATIVE) Crossmatch COMPATIBLE COMPATIBLE (COMPATIBLE) 02/26/24 02/26/24 02/26/24 Range/Units 19:55 19:55 19:55 WBC (3.98-10.04) x10^3/uL RBC (3.93-5.22) x10^6/uL Hgb (11.2-15.7) g/dL Hct (34.1-44.9) % MCV (79.4-94.8) fL MCH (25.6-32.2) pg MCHC (32.2-35.5) g/dL RDW (11.7-14.4) % Plt Count (182-369) x10^3/uL MPV (9.4-12.3) fL Gran % (34.0-71.1) % Immature Gran % (Auto) (0.001-0.429) % Nucleat RBC Rel Count (0.00-0.2) % Eos # (Auto) (0.04-0.36) x10^3/uL Immature Gran # (Auto) (0.001-0.031) x10^3u/L Absolute Lymphs (auto) (1.18-3.74) x10^3/uL Absolute Monos (auto) (0.24-0.86) x10^3/uL Absolute Nucleated RBC (0.00-0.012) x10^3u/L Lymphocytes % (19.3-51.7) % Monocytes % (4.7-12.5) % Eosinophils % (0.7-5.8) % Basophils % (0.1-1.2) % Absolute Granulocytes (1.56-6.13) x10^3/uL Basophils # (0.01-0.08) x10^3/uL D-Dimer 1.10 H* (0.0-0.50) mg/L Puncture Site pCO2 (35-45) mmHg pO2 (75-100) mmHg Base Excess (-2.0-2.0) O2 Saturation (94-100) g/dF ABG pH (7.35-7.45) ABG HCO3 (22-28) ABG O2 Sat (Measured) (95-100) % Quentin Test A-a Gradient a/A Ratio Hemoglobin Carboxyhemoglobin (0.0-6.9) % THgb Methemoglobin (1.4-1.5) % Potassium 4.7 (3.5-5.1) Temperature C POC O2 Flow Rate % Sodium 137 (135-145) mmol/L Chloride 111 H (98-107) mmol/L Carbon Dioxide 15 L* (22-30) mmol/L Anion Gap 16.9 H (5-15) MEQ/L BUN 38 H (7-17) mg/dL Creatinine 2.16 H (0.52-1.04) mg/dL Estimated GFR 23.8 ML/MIN Glucose 136 H (74-106) mg/dL Lactic Acid (0.4-2.0) Calcium 8.8 (8.4-10.2) mg/dL Total Bilirubin 0.50 (0.2-1.3) mg/dL AST 20 (14-36) U/L ALT 14 (0-35) U/L Alkaline Phosphatase 69 (38-126) U/L Troponin I 0.617 H* (0.000-0.033) ng/mL NT-Pro-B Natriuret Pep (<300) pg/mL Serum Total Protein 5.8 L (6.3-8.2) g/dL Albumin 3.1 L (3.5-5.0) g/dL Ethyl Alcohol < 10 (0-10) mg/dL Slides for Path Review ABO Group Rh Factor Antibody Screen (NEGATIVE) Crossmatch (COMPATIBLE) 02/26/24 02/26/24 02/26/24 Range/Units 19:55 19:46 19:44 WBC 14.3 H (3.98-10.04) x10^3/uL RBC 1.54 L (3.93-5.22) x10^6/uL Hgb 4.0 L* (11.2-15.7) g/dL Hct 13.9 L (34.1-44.9) % MCV 90.3 (79.4-94.8) fL MCH 26.0 (25.6-32.2) pg MCHC 28.8 L (32.2-35.5) g/dL RDW 17.5 H (11.7-14.4) % Plt Count 314 (182-369) x10^3/uL MPV 8.8 L (9.4-12.3) fL Gran % 76.6 H (34.0-71.1) % Immature Gran % (Auto) 2.4 H (0.001-0.429) % Nucleat RBC Rel Count 2.9 H (0.00-0.2) % Eos # (Auto) 0.03 L (0.04-0.36) x10^3/uL Immature Gran # (Auto) 0.34 H (0.001-0.031) x10^3u/L Absolute Lymphs (auto) 2.00 (1.18-3.74) x10^3/uL Absolute Monos (auto) 0.92 H (0.24-0.86) x10^3/uL Absolute Nucleated RBC 0.41 H (0.00-0.012) x10^3u/L Lymphocytes % 14.0 L (19.3-51.7) % Monocytes % 6.4 (4.7-12.5) % Eosinophils % 0.2 L (0.7-5.8) % Basophils % 0.4 (0.1-1.2) % Absolute Granulocytes 10.92 H (1.56-6.13) x10^3/uL Basophils # 0.06 (0.01-0.08) x10^3/uL D-Dimer (0.0-0.50) mg/L Puncture Site LRA pCO2 38 (35-45) mmHg pO2 108 H (75-100) mmHg Base Excess -9.1 L (-2.0-2.0) O2 Saturation 96.4 (94-100) g/dF ABG pH 7.26 L (7.35-7.45) ABG HCO3 17.1 L (22-28) ABG O2 Sat (Measured) 98.8 (95-100) % Quentin Test YES A-a Gradient 130 a/A Ratio 0.45 Hemoglobin 4.4 L* Carboxyhemoglobin 1.1 (0.0-6.9) % THgb Methemoglobin 1.4 (1.4-1.5) % Potassium 5.0 (3.5-5.1) Temperature 37.0 C POC O2 Flow Rate 40 % Sodium (135-145) mmol/L Chloride (98-107) mmol/L Carbon Dioxide (22-30) mmol/L Anion Gap (5-15) MEQ/L BUN (7-17) mg/dL Creatinine (0.52-1.04) mg/dL Estimated GFR ML/MIN Glucose (74-106) mg/dL Lactic Acid 2.8 H (0.4-2.0) Calcium (8.4-10.2) mg/dL Total Bilirubin (0.2-1.3) mg/dL AST (14-36) U/L ALT (0-35) U/L Alkaline Phosphatase (38-126) U/L Troponin I (0.000-0.033) ng/mL NT-Pro-B Natriuret Pep (<300) pg/mL Serum Total Protein (6.3-8.2) g/dL Albumin (3.5-5.0) g/dL Ethyl Alcohol (0-10) mg/dL Slides for Path Review YES ABO Group Rh Factor Antibody Screen (NEGATIVE) Crossmatch (COMPATIBLE) - Progress Progress: improved Progress Note: Case discussed with Dr. Olmos who accepts admission to observation. However we decided that we would obtain troponin #2 prior to transfer to floor to assure that the troponin is trending downward. Troponin #2 obtain. Troponin is trending downward. Patient completed her first unit of PRBC. She appears to be feeling well. Troponin improved from 0.617-0.5 6 2. Lactic acid improved from 2.8-1.0. Patient had not urinated since arrival to our ED. A [place] catheter been placed. D-dimer was ordered as patient complained of shortness of breath however the shortness of breath is well explained via profound anemia. D-dimer positive. However patient not a candidate for CTA due to diminished GFR. Patient not a candidate for anticoagulation due to GI bleed. Patient is improving gradually. It is unlikely patient has a PE. However I discussed this with hospitalist. A VQ scan will be his discretion. Plan of care discussed with patient. She agrees to admission [facility] for further evaluation and treatment. Blood pressure 100/55. MAP of 70. Heart rate 76 O2 sat 100% on 2 L nasal cannula. 02/27/24 01:02 Complexity problem addressed is high, threat to bodily function. Critical care time is greater than 194 minutes. Patient receiving critical care for over 7 hours since arrival to our ED. Patient with profound symptomatic anemia with elevated troponin. Immediate action indicated to prevent further deterioration Complexity of data reviewed and analyzed is extensive. Test ordered test reviewed results analyzed and correlated clinically with history and physical examination. Management discussed with hospitalist who accepts admission to observation. Risk of complication and or risk of morbidity/mortality of patient management is high. Patient requires hospitalization for further evaluation and treatment. Vital stable. Time spent admit patient is approximately 30 minutes. Plan of care established for shared decision making. No social determinants of health present impede follow-up. Portions of this note were created with voice recognition technology. There may be grammatical, spelling, punctuation or sound alike errors 02/27/24 01:57 Counseled pt/family regarding: lab results, diagnosis - Departure Departure Disposition: Observation Clinical Impression: Leukocytosis, Normocytic anemia, Lactic acidosis, High anion gap metabolic acidosis, GI bleed, Elevated troponin, Acute renal injury Condition: Stable Critical Care Time: No Referrals: [facility] [Primary Care Provider] - Follow up/PCP as directed
[2024-02-26] MEDS: PROTONIX 40 MG IV IV ONE (21:00)
[2024-02-26] MEDS ORDERED: PROTONIX 40 MG IV IV ONE (21:00)
[2024-02-26] MEDS ORDERED: Sodium Chloride 0.9% 250 ML 250 ML IV ONE (21:55)
[2024-02-26 22:18] LABS: ABO TYPING O; Antibody Screen NEGATIVE (NEGATIVE); RH TYPING POSITIVE
[2024-02-26 22:22] LABS: CROSS MATCH (PRBC) COMPATIBLE (COMPATIBLE)
[2024-02-26 22:23] LABS: CROSS MATCH (PRBC) COMPATIBLE (COMPATIBLE)
[2024-02-26 22:24] LABS: CROSS MATCH (PRBC) COMPATIBLE (COMPATIBLE)
[2024-02-27 00:01] LABS: Slide Review 1 YES
--- NOTE | 2024-02-27 00:41 | PCM.HP ---
History of Present Illness - Chief Complaint Chief Complaint: weakness Date: 02/26/24 History of Present Illness: Ms. CLOUD is a 73 year old female with a past medical history significant for hypertension, hyperlipidemia and obesity who was brought to the ER by her hus band with complaints of severe weakness and lethargy. She reportedly has bad eyesight but noted that she has been passing dark/bloody stools. Upon arrival, she was found to be markedly anemic with a hemoglobin of 4.5 and a creatinine of 2.15 associated with a bicarb of 17. She is resting in bed, lethargic but arousable. She is difficult to obtain a full history from, but apparently this has been going on for a while. Initial troponin was slightly elevated with some ischemic changes on EKG but she denies any chest pain, shortness of breath or palpitations. - Review of Systems Constitutional: Fatigue, Lethargy, Malaise Eyes: No Vision Changes Ears, Nose, & Throat: No Nose Discharge, No Sinus Drainage Respiratory: No Orthopnea, No Short Of Breath Cardiac: No Chest Pain, No Edema, No Palpitations Abdominal/Gastrointestinal: No Abdominal Pain, No Nausea, No Vomiting Genitourinary Symptoms: No Dysuria, No Frequency, No Hematuria Musculoskeletal: No Arthralgias, No Back Pain Skin: No Cellulitis, No Rash Neurological: No Dizziness, No Focal Weakness Psychological: No Suicidal Ideations Endocrine: No Polyuria, No Polydipsia Hematologic/Lymphatic: No Easy Bleeding, No Easy Bruising Medications & Allergies Home Medications: Home Medication List Unobtainable 02/26/24 [History Confirmed 02/26/24] Allergies/Adverse Reactions: Allergies Allergy/AdvReac Type Severity Reaction Status Date / Time penicillin G Allergy Severe Verified 02/26/24 19:19 - Past Medical History Past Medical History: Yes Cardiac History: Coronary Artery Disease, Hypertension, Myocardial Infarction (NE) Endocrine Medical History: Diabetes Type II Musculoskelatal History: Fibromyalgia Comment: Wounds to BLE that are being treated by Dr. Mendez. Sock Lining Examiner: Dr. Mercer - Past Surgical History Past Surgical History: Yes Cardiac History: Cardiac Catheterization, Cardiac Stent Musculskeletal Surgical Hx: Orthopedic Surgery Other Surgical History: BACK, HANDS - Social History Smoking Status: Never smoker Exposure to second hand smoke: No Alcohol: None Drug Use: none - Social Determinants of Health Will the patient participate in the screening: Declined to provide - Physical Exam Vital Signs: Vital Signs - 24 hr Temp Pulse Resp BP BP Pulse Ox 02/27/24 00:00 77 20 83/38 100 02/26/24 23:45 76 19 79/50 100 02/26/24 23:30 86 19 89/49 99 02/26/24 23:27 79 24 85/51 100 02/26/24 23:15 76 21 83/55 100 02/26/24 23:00 77 21 88/44 02/26/24 22:54 79 21 83/55 100 02/26/24 22:45 78 33 H 81/50 100 02/26/24 22:34 79 30 H 83/50 100 02/26/24 22:30 79 32 H 82/46 99 02/26/24 22:00 78 20 83/47 90 L 02/26/24 21:34 100 02/26/24 21:30 79 26 H 81/50 99 02/26/24 21:00 78 22 75/44 99 02/26/24 20:37 76 29 H 80/44 100 02/26/24 20:30 76/36 02/26/24 20:15 76 25 H 73/47 100 02/26/24 20:00 76 24 74/47 98 02/26/24 19:44 99 02/26/24 19:30 70 25 H 72/45 99 02/26/24 19:15 97.4 F 67 20 74/42 98 General Appearance: no apparent distress Neurologic Exam: disoriented Ears, Nose, Throat Exam: dry mucous membranes Neck Exam: supple Respiratory Exam: No respiratory distress Cardiovascular Exam: regular rate/rhythm Gastrointestinal/Abdomen Exam: soft Extremity Exam: No pedal edema, No swelling Skin Exam: warm, dry, No rash Results - Labs Lab/Micro Results: Lab Results-Last 24 Hours 02/26/24 02/26/24 02/26/24 Range/Units 19:44 19:46 19:55 WBC 14.3 H (3.98-10.04) x10^3/uL RBC 1.54 L (3.93-5.22) x10^6/uL Hgb 4.0 L* (11.2-15.7) g/dL Hct 13.9 L (34.1-44.9) % MCV 90.3 (79.4-94.8) fL MCH 26.0 (25.6-32.2) pg MCHC 28.8 L (32.2-35.5) g/dL RDW 17.5 H (11.7-14.4) % Plt Count 314 (182-369) x10^3/uL MPV 8.8 L (9.4-12.3) fL Gran % 76.6 H (34.0-71.1) % Immature Gran % (Auto) 2.4 H (0.001-0.429) % Nucleat RBC Rel Count 2.9 H (0.00-0.2) % Eos # (Auto) 0.03 L (0.04-0.36) x10^3/uL Immature Gran # (Auto) 0.34 H (0.001-0.031) x10^3u/L Absolute Lymphs (auto) 2.00 (1.18-3.74) x10^3/uL Absolute Monos (auto) 0.92 H (0.24-0.86) x10^3/uL Absolute Nucleated RBC 0.41 H (0.00-0.012) x10^3u/L Lymphocytes % 14.0 L (19.3-51.7) % Monocytes % 6.4 (4.7-12.5) % Eosinophils % 0.2 L (0.7-5.8) % Basophils % 0.4 (0.1-1.2) % Absolute Granulocytes 10.92 H (1.56-6.13) x10^3/uL Basophils # 0.06 (0.01-0.08) x10^3/uL D-Dimer (0.0-0.50) mg/L Puncture Site LRA pCO2 38 (35-45) mmHg pO2 108 H (75-100) mmHg Base Excess -9.1 L (-2.0-2.0) O2 Saturation 96.4 (94-100) g/dF ABG pH 7.26 L (7.35-7.45) ABG HCO3 17.1 L (22-28) ABG O2 Sat (Measured) 98.8 (95-100) % Quentin Test YES A-a Gradient 130 a/A Ratio 0.45 Hemoglobin 4.4 L* Carboxyhemoglobin 1.1 (0.0-6.9) % THgb Methemoglobin 1.4 (1.4-1.5) % Potassium 5.0 (3.5-5.1) Temperature 37.0 C POC O2 Flow Rate 40 % Sodium (135-145) mmol/L Chloride (98-107) mmol/L Carbon Dioxide (22-30) mmol/L Anion Gap (5-15) MEQ/L BUN (7-17) mg/dL Creatinine (0.52-1.04) mg/dL Estimated GFR ML/MIN Glucose (74-106) mg/dL Lactic Acid 2.8 H (0.4-2.0) Calcium (8.4-10.2) mg/dL Total Bilirubin (0.2-1.3) mg/dL AST (14-36) U/L ALT (0-35) U/L Alkaline Phosphatase (38-126) U/L Troponin I (0.000-0.033) ng/mL NT-Pro-B Natriuret Pep (<300) pg/mL Serum Total Protein (6.3-8.2) g/dL Albumin (3.5-5.0) g/dL Ethyl Alcohol (0-10) mg/dL Slides for Path Review YES ABO Group Rh Factor Antibody Screen (NEGATIVE) Crossmatch (COMPATIBLE) 02/26/24 02/26/24 02/26/24 Range/Units 19:55 19:55 19:55 WBC (3.98-10.04) x10^3/uL RBC (3.93-5.22) x10^6/uL Hgb (11.2-15.7) g/dL Hct (34.1-44.9) % MCV (79.4-94.8) fL MCH (25.6-32.2) pg MCHC (32.2-35.5) g/dL RDW (11.7-14.4) % Plt Count (182-369) x10^3/uL MPV (9.4-12.3) fL Gran % (34.0-71.1) % Immature Gran % (Auto) (0.001-0.429) % Nucleat RBC Rel Count (0.00-0.2) % Eos # (Auto) (0.04-0.36) x10^3/uL Immature Gran # (Auto) (0.001-0.031) x10^3u/L Absolute Lymphs (auto) (1.18-3.74) x10^3/uL Absolute Monos (auto) (0.24-0.86) x10^3/uL Absolute Nucleated RBC (0.00-0.012) x10^3u/L Lymphocytes % (19.3-51.7) % Monocytes % (4.7-12.5) % Eosinophils % (0.7-5.8) % Basophils % (0.1-1.2) % Absolute Granulocytes (1.56-6.13) x10^3/uL Basophils # (0.01-0.08) x10^3/uL D-Dimer 1.10 H* (0.0-0.50) mg/L Puncture Site pCO2 (35-45) mmHg pO2 (75-100) mmHg Base Excess (-2.0-2.0) O2 Saturation (94-100) g/dF ABG pH (7.35-7.45) ABG HCO3 (22-28) ABG O2 Sat (Measured) (95-100) % Quentin Test A-a Gradient a/A Ratio Hemoglobin Carboxyhemoglobin (0.0-6.9) % THgb Methemoglobin (1.4-1.5) % Potassium 4.7 (3.5-5.1) Temperature C POC O2 Flow Rate % Sodium 137 (135-145) mmol/L Chloride 111 H (98-107) mmol/L Carbon Dioxide 15 L* (22-30) mmol/L Anion Gap 16.9 H (5-15) MEQ/L BUN 38 H (7-17) mg/dL Creatinine 2.16 H (0.52-1.04) mg/dL Estimated GFR 23.8 ML/MIN Glucose 136 H (74-106) mg/dL Lactic Acid (0.4-2.0) Calcium 8.8 (8.4-10.2) mg/dL Total Bilirubin 0.50 (0.2-1.3) mg/dL AST 20 (14-36) U/L ALT 14 (0-35) U/L Alkaline Phosphatase 69 (38-126) U/L Troponin I 0.617 H* (0.000-0.033) ng/mL NT-Pro-B Natriuret Pep (<300) pg/mL Serum Total Protein 5.8 L (6.3-8.2) g/dL Albumin 3.1 L (3.5-5.0) g/dL Ethyl Alcohol < 10 (0-10) mg/dL Slides for Path Review ABO Group Rh Factor Antibody Screen (NEGATIVE) Crossmatch (COMPATIBLE) 02/26/24 02/26/24 02/26/24 Range/Units 19:55 20:28 20:28 WBC (3.98-10.04) x10^3/uL RBC (3.93-5.22) x10^6/uL Hgb (11.2-15.7) g/dL Hct (34.1-44.9) % MCV (79.4-94.8) fL MCH (25.6-32.2) pg MCHC (32.2-35.5) g/dL RDW (11.7-14.4) % Plt Count (182-369) x10^3/uL MPV (9.4-12.3) fL Gran % (34.0-71.1) % Immature Gran % (Auto) (0.001-0.429) % Nucleat RBC Rel Count (0.00-0.2) % Eos # (Auto) (0.04-0.36) x10^3/uL Immature Gran # (Auto) (0.001-0.031) x10^3u/L Absolute Lymphs (auto) (1.18-3.74) x10^3/uL Absolute Monos (auto) (0.24-0.86) x10^3/uL Absolute Nucleated RBC (0.00-0.012) x10^3u/L Lymphocytes % (19.3-51.7) % Monocytes % (4.7-12.5) % Eosinophils % (0.7-5.8) % Basophils % (0.1-1.2) % Absolute Granulocytes (1.56-6.13) x10^3/uL Basophils # (0.01-0.08) x10^3/uL D-Dimer (0.0-0.50) mg/L Puncture Site pCO2 (35-45) mmHg pO2 (75-100) mmHg Base Excess (-2.0-2.0) O2 Saturation (94-100) g/dF ABG pH (7.35-7.45) ABG HCO3 (22-28) ABG O2 Sat (Measured) (95-100) % Quentin Test A-a Gradient a/A Ratio Hemoglobin Carboxyhemoglobin (0.0-6.9) % THgb Methemoglobin (1.4-1.5) % Potassium (3.5-5.1) Temperature C POC O2 Flow Rate % Sodium (135-145) mmol/L Chloride (98-107) mmol/L Carbon Dioxide (22-30) mmol/L Anion Gap (5-15) MEQ/L BUN (7-17) mg/dL Creatinine (0.52-1.04) mg/dL Estimated GFR ML/MIN Glucose (74-106) mg/dL Lactic Acid (0.4-2.0) Calcium (8.4-10.2) mg/dL Total Bilirubin (0.2-1.3) mg/dL AST (14-36) U/L ALT (0-35) U/L Alkaline Phosphatase (38-126) U/L Troponin I (0.000-0.033) ng/mL NT-Pro-B Natriuret Pep 4680 (<300) pg/mL Serum Total Protein (6.3-8.2) g/dL Albumin (3.5-5.0) g/dL Ethyl Alcohol (0-10) mg/dL Slides for Path Review ABO Group O Rh Factor POSITIVE Antibody Screen NEGATIVE (NEGATIVE) Crossmatch COMPATIBLE COMPATIBLE (COMPATIBLE) 02/26/24 02/26/24 02/26/24 Range/Units 20:28 21:57 23:20 WBC (3.98-10.04) x10^3/uL RBC (3.93-5.22) x10^6/uL Hgb (11.2-15.7) g/dL Hct (34.1-44.9) % MCV (79.4-94.8) fL MCH (25.6-32.2) pg MCHC (32.2-35.5) g/dL RDW (11.7-14.4) % Plt Count (182-369) x10^3/uL MPV (9.4-12.3) fL Gran % (34.0-71.1) % Immature Gran % (Auto) (0.001-0.429) % Nucleat RBC Rel Count (0.00-0.2) % Eos # (Auto) (0.04-0.36) x10^3/uL Immature Gran # (Auto) (0.001-0.031) x10^3u/L Absolute Lymphs (auto) (1.18-3.74) x10^3/uL Absolute Monos (auto) (0.24-0.86) x10^3/uL Absolute Nucleated RBC (0.00-0.012) x10^3u/L Lymphocytes % (19.3-51.7) % Monocytes % (4.7-12.5) % Eosinophils % (0.7-5.8) % Basophils % (0.1-1.2) % Absolute Granulocytes (1.56-6.13) x10^3/uL Basophils # (0.01-0.08) x10^3/uL D-Dimer (0.0-0.50) mg/L Puncture Site pCO2 (35-45) mmHg pO2 (75-100) mmHg Base Excess (-2.0-2.0) O2 Saturation (94-100) g/dF ABG pH (7.35-7.45) ABG HCO3 (22-28) ABG O2 Sat (Measured) (95-100) % Quentin Test A-a Gradient a/A Ratio Hemoglobin Carboxyhemoglobin (0.0-6.9) % THgb Methemoglobin (1.4-1.5) % Potassium (3.5-5.1) Temperature C POC O2 Flow Rate % Sodium (135-145) mmol/L Chloride (98-107) mmol/L Carbon Dioxide (22-30) mmol/L Anion Gap (5-15) MEQ/L BUN (7-17) mg/dL Creatinine (0.52-1.04) mg/dL Estimated GFR ML/MIN Glucose (74-106) mg/dL Lactic Acid 1.0 (0.4-2.0) Calcium (8.4-10.2) mg/dL Total Bilirubin (0.2-1.3) mg/dL AST (14-36) U/L ALT (0-35) U/L Alkaline Phosphatase (38-126) U/L Troponin I 0.562 H* (0.000-0.033) ng/mL NT-Pro-B Natriuret Pep (<300) pg/mL Serum Total Protein (6.3-8.2) g/dL Albumin (3.5-5.0) g/dL Ethyl Alcohol (0-10) mg/dL Slides for Path Review ABO Group Rh Factor Antibody Screen (NEGATIVE) Crossmatch COMPATIBLE (COMPATIBLE) Assessment/Plan (1) Acute renal injury Current Visit: Yes Status: Acute Assessment & Plan: Likely from prerenal azotemia related to severe anemia but should rule out dysproteinemia such as MM/amyloidosis given anemia 1. Renal u/s 2. SPEP/UPEP 3. IVFs 4. Check urine lytes, urine creatinine 5. Follow I/Os 6. Watch electrolytes, creatinine closely Code(s): N17.9 - ACUTE KIDNEY FAILURE, UNSPECIFIED (2) Elevated troponin Current Visit: Yes Status: Acute Assessment & Plan: Likely from severe anemia -> ischemia in setting of SUSANNA 1. Trend troponin 2. Telemetry 3. Defer ASA with anemia/possibility of GI bleed Code(s): R79.89 - OTHER SPECIFIED ABNORMAL FINDINGS OF BLOOD CHEMISTRY (3) Lactic acidosis Current Visit: Yes Status: Acute Assessment & Plan: Likely from SUSANNA/ischemia, doubt ischemic bowel 1. Trend lactic acid 2. Defer CT scan abd with IV contrast given SUSANNA 3. Consider bicarb if persistent Code(s): E87.20 - ACIDOSIS, UNSPECIFIED (4) Normocytic anemia Current Visit: Yes Status: Acute Assessment & Plan: Likely from GI bleed given hematochezia but need to rule out BM disease/CKD as etiology 1. Transfuse pRBC 2. Check SPEP/UPEP, iron profile 3. Trend H/H 4. GI prophylaxis 5. Likely needs EGD/colonoscopy Code(s): D64.9 - ANEMIA, UNSPECIFIED Telemedicine Encounter - Telemedicine Encounter Telemedicine Encounter: The entirety of this encounter was performed via Telemedicine"
[2024-02-27] MEDS ORDERED: Lasix 40 MG/4 ML ONE (00:43)
[2024-02-27] MEDS: Lasix 40 MG/4 ML IV ONE (00:44)
[2024-02-27 02:16] LABS: Appearance Clear (Clear); Bacteria None Seen /HPF (None Seen); Bilirubin Negative (Negative); Blood Negative (Negative); Epithelial Cells Few /HPF (None Seen); Glucose, Urine Negative (Negative); Hyaline Casts >50 /LPF (0-2); Ketones Trace (Negative); Leukocyte Esterase Trace (Negative); Nitrite Negative (Negative); Protein,Urine Dip 30 (Negative); RBC 0-2 /HPF (0-5); WBC 0-2 /HPF (0-5)
[2024-02-27 02:17] LABS: ADD URINE CULTURE? ORDERED SEPARATELY (NO)
[2024-02-27] MEDS ORDERED: TYLENOL 325 MG PO PRN ×2 (02:42→08:19)
[2024-02-27] MEDS ORDERED: Sodium Chloride 0.9% 250 ML 250 ML IV ONE (03:28)
[2024-02-27 04:35] LABS: CREATININE,URINE RANDOM 211.8 MG/DL
[2024-02-27] MEDS ORDERED: HUMALOG SQ PRN (08:17)
[2024-02-27] MEDS ORDERED: Compazine 10 MG/2 ML IV PRN (08:20)
[2024-02-27 08:34] LABS: Mean Cell Volume 89.1 fL (79.4-94.8); Mean Corpuscular Hemoglobin 26.7 pg (25.6-32.2); Mean Platelet Volume 8.8 fL (9.4-12.3); Platelet Count 289 x10^3/uL (182-369); Red Blood Count 2.47 x10^6/uL (3.93-5.22); Red Cell Distribution Width 16.5 % (11.7-14.4); White Blood Count 14.4 x10^3/uL (3.98-10.04)
[2024-02-27 08:40] LABS: Hemoglobin 6.6 g/dL (11.2-15.7)
[2024-02-27 08:47] LABS: ALBUMIN 3.2 g/dL (3.5-5.0); ANION GAP 14.7 MEQ/L (5-15); BILIRUBIN,TOTAL 0.6 mg/dL (0.2-1.3); Calcium 8.9 mg/dL (8.4-10.2); Creatinine 1 2.21 mg/dL (0.52-1.04); EST GLOMERULAR FILTRATION RATE 23.1 ML/MIN; MAGNESIUM 2.4 mg/dL (1.6-2.3); PREALBUMIN 11.63 mg/dL (17.6-36.0); Potassium 4.3 mmol/L (3.5-5.1)
--- NOTE | 2024-02-27 09:20 | XRAY ---
Indication: Acute kidney injury. Two-dimensional renal sonogram performed. Comparison: None Both kidneys are normal in reniform shape with normal color perfusion. Right kidney measures 9.6 x 5.0 x 5.4 cm and left measures 12.8 x 6.4 x 5.3 cm. Left lower pole demonstrates a 7.1 x 5.5 x 5.3 cm exophytic simple cyst. Right mid kidney demonstrates a 1.5 x 1.2 x 1.2 cm cortical simple cysts. No focal solid renal mass or hydronephrosis. Corticomedullary differentiation preserved. Urinary bladder is empty with [place] balloon catheter in situ. Impression: Bilateral renal simple cysts as detailed.
[2024-02-27] MEDS ORDERED: Sodium Chloride 0.9% 1000 ML 1,000 ML ONE (09:28)
[2024-02-27] MEDS: Sodium Chloride 0.9% 1000 ML 1,000 ML IV SCH ×2 (09:32→11:32)
[2024-02-27] MEDS ORDERED: NON-FORMULARY ITEM (Duloxetine Hcl [Cymbalta] 60 MG Capsule.Dr) PO SCH (10:00)
[2024-02-27] MEDS ORDERED: Protonix 40MG Tablet PO SCH (10:00)
[2024-02-27] MEDS ORDERED: COREG 12.5 MG PO SCH (10:00)
--- NOTE | 2024-02-27 10:24 | PCM.CONS ---
History of Present Illness - Date of Consult Date of Encounter: 02/27/24 Consulting Registrar Assistant: MARIANA HERBERT MD Requesting Provider: Attending Provider: IGGY BRYSON MD Primary Care Provider: PCP: AVA CORONEL Consent was: Given for this tele-med encounter (Her son was present during entrire encounter. Her arrived near the end.) - Consult Narrative Reason for Consult: Troponin-I elevation HPI: Patient is a severely obese 73 y.o. female with history of CAD S/P PCI 06/10/2017 with 4 JAYSON, moderate aortic stenosis, HTN, hyperlipidemia, type II DM, and chronic LE edema who presented with a 3 day history of BRBPR and weakness. Consultation is requested for an elevated troponin-I (0.562, 0.540). At admission yesterday her Hgb was 4.0 and 6.6 this am, but there is no matched blood products available here with her type O blood. Initial BP at arrival yesterday was 81/50. It increased to SBP 90s within 4 hours with IVFs and droppe d again this am to 70/37. She was given 1000cc NS, transferred to the ICU, and placed on Levophed infusion currently at 8 mcg/min. Her BP is currently 91/60. Patient was unaware of any GI bleeding. Her noticed BRB in toilet after patient flushed stating 3 days prior to admission. Patient describes having an episode of chest pressure yesterday relieved with SL NTG x1 within 2 minutes. No other episodes of angina in recent months. Her ECG at arrival dis have ischemic changes in he high lateral leads with new T wave inversion when compared to an ECG from 06/2021. She had a chemical MPS 2 months ago at her procedure analyst's office (Dr. Hernandez Mercer in [place]) and was told "everything looks fine". She has had a history of stable angina since her [place] and PCI in 06/2017. She denies any history of CHF. A TTE from 12/2023 showed moderate concentric LVH with normal systolic function, and moderate aorrtic stenosis (complete report below). She denies shortness of breath but has had chronic bilateral LE edema since 06/2023. She has been treated for celllulitis and currently has wraps up to the knees bilaterally. No one has spoken to her about venous insufficiency. Venous Doppler of both LEs in 12/2023 without evidence of a DVT. She has been on furosemide since her [place] in 2017. There has been no increase in diuretic dose since then. Her check pilot had started Jardience earlier this year which she did not tolerate. REVIEW OF SYSTEMS: Complete ROS performed. Pertinent positives and negatives in HPI. Positive for carpal tunnel. All other systems have been reviewed and are negative. cc:: The requesting physician will be sent a copy of the consult. - Past Medical History Past Medical History: Yes Neurological History: No Pertinent History ENT History: Cataracts Cardiac History: Coronary Artery Disease, Hypertension, Myocardial Infarction ([place]) (06/2017) Respiratory History: No Pertinent History Endocrine Medical History: Diabetes Type II Musculoskelatal History: Fibromyalgia GI Medical History: No Pertinent History History: No Pertinent History Pyscho-Social History: No Pertinent History Reproductive Disorders: No Pertinent History Comment: Wounds to BLE that are being treated by Dr. Mendez. Registrar Assistant: Dr. eMrcer - Past Surgical History Past Surgical History: Yes Cardiac History: Cardiac Catheterization, Cardiac Stent (Resolute Integrity JAYSON x4 06/10/2017 (unknown vessels)) Musculskeletal Surgical Hx: Orthopedic Surgery Other Surgical History: BACK, HANDS - Social History Smoking Status: Former smoker Exposure to second hand smoke: No Alcohol: None Drug Use: none - Social Determinants of Health Will the patient participate in the screening: Yes Do you worry about a steady place to live?: No Do you have any problems with any of the following?: No known problems In the past 12 months,have you had to go without utilities?: No Have you or anyone in your house had to go without enough: No Transportation Issues: No Has anyone in your support network made you feel unsafe?: No Does the patient want assistance with any of the above?: No Medications & Allergies Home Medications: Home Medication List Aspirin EC 81 mg [Ecotrin 81 mg] 81 mg PO DAILY 02/27/24 [History Confirmed 02/27/24] Carvedilol 12.5 mg [Coreg 12.5 mg] 12.5 mg PO DAILY 02/27/24 [History Confirmed 02/27/24] Clopidogrel Bisulfate [Clopidogrel] 75 mg PO DAILY 02/27/24 [History Confirmed 02/27/24] Duloxetine HCl [Cymbalta] 60 mg PO DAILY 02/27/24 [History Confirmed 02/27/24] Furosemide 40 mg [Lasix 40 MG] 40 mg PO DAILY 02/27/24 [History Confirmed 02/27/24] Metformin HCl 500 mg [Glucophage 500 MG] 500 mg PO BID 02/27/24 [History Confirmed 02/27/24] Nitroglycerin 0.4 mg Tablet [Nitrostat 0.4 MG Tablet] 0.4 mg PO Q5MIN PRN MR X 3 PRN 02/27/24 [History Confirmed 02/27/24] Potassium Chloride 10 meq PO DAILY 02/27/24 [History Confirmed 02/27/24] Rosuvastatin Calcium 20 mg PO DAILY 02/27/24 [History Confirmed 02/27/24] Valsartan 80 mg PO DAILY 02/27/24 [History Confirmed 02/27/24] Allergies/Adverse Reactions: Allergies Allergy/AdvReac Type Severity Reaction Status Date / Time penicillin G Allergy Severe Verified 02/26/24 19:19 Exam - Vitals Vital Signs: Vital Signs - 24 hr Temp Pulse Resp BP BP Pulse Ox 02/27/24 08:00 97.6 F 85 18 67/31 97 02/27/24 07:36 100 02/27/24 03:00 98 02/27/24 02:16 97.1 F 78 18 107/58 100 02/27/24 02:15 77 20 98/54 100 02/27/24 02:07 100 02/27/24 02:00 78 21 104/55 94 L 02/27/24 01:45 78 20 100/55 100 02/27/24 01:30 74 28 H 89/46 100 02/27/24 01:15 77 31 H 90/47 100 02/27/24 01:00 76 19 80/54 100 02/27/24 00:45 76 20 84/56 100 02/27/24 00:30 77 20 75/30 99 02/27/24 00:15 78 17 79/37 02/27/24 00:00 77 19 83/38 100 02/26/24 23:45 76 19 79/50 100 02/26/24 23:30 86 19 89/49 99 02/26/24 23:27 79 24 85/51 100 02/26/24 23:15 76 21 83/55 100 02/26/24 23:00 77 21 88/44 02/26/24 22:54 79 21 83/55 100 02/26/24 22:45 78 33 H 81/50 100 02/26/24 22:34 79 30 H 83/50 100 02/26/24 22:30 79 32 H 82/46 99 02/26/24 22:00 78 20 83/47 90 L 02/26/24 21:30 79 26 H 81/50 99 02/26/24 21:00 78 22 75/44 99 02/26/24 20:37 76 29 H 80/44 100 02/26/24 20:30 76/36 02/26/24 20:15 76 25 H 73/47 100 02/26/24 20:00 76 24 74/47 98 02/26/24 19:44 99 02/26/24 19:30 70 25 H 72/45 99 02/26/24 19:15 97.4 F 67 20 74/42 98 General:: alert and oriented x 4 HEENT: EOMI, JVD (JVD to jaw with HOB elevated 50 degrees) Cardiovascular Exam: regular rate/rhythm, murmur (Grade II/ early peaking crescendo/decrescendo systolic murmur at RUSB, Grade III/ HSM at LLSB.), other (Normal S1 and S2.) SpO2: 97 Oxygen Delivery: Nasal Cannula Gastrointestinal/Abdomen Exam: normal bowel sounds Extremity Exam: edema (1+ edema between wraps and knee laterally in both LEs. No edema in inner thighs. Wraps present nearly to knees bilaterally.) Neurologic: shed workers supervisor II-XII grossly intact, other (Grossly non-focal.) Results Vital Signs: Vital Signs - 24 hr Temp Pulse Resp BP BP Pulse Ox 02/27/24 08:00 97.6 F 85 18 67/31 97 02/27/24 07:36 100 02/27/24 03:00 98 02/27/24 02:16 97.1 F 78 18 107/58 100 02/27/24 02:15 77 20 98/54 100 02/27/24 02:07 100 02/27/24 02:00 78 21 104/55 94 L 02/27/24 01:45 78 20 100/55 100 02/27/24 01:30 74 28 H 89/46 100 02/27/24 01:15 77 31 H 90/47 100 02/27/24 01:00 76 19 80/54 100 02/27/24 00:45 76 20 84/56 100 02/27/24 00:30 77 20 75/30 99 02/27/24 00:15 78 17 79/37 02/27/24 00:00 77 19 83/38 100 02/26/24 23:45 76 19 79/50 100 02/26/24 23:30 86 19 89/49 99 02/26/24 23:27 79 24 85/51 100 02/26/24 23:15 76 21 83/55 100 02/26/24 23:00 77 21 88/44 02/26/24 22:54 79 21 83/55 100 02/26/24 22:45 78 33 H 81/50 100 02/26/24 22:34 79 30 H 83/50 100 02/26/24 22:30 79 32 H 82/46 99 02/26/24 22:00 78 20 83/47 90 L 02/26/24 21:30 79 26 H 81/50 99 02/26/24 21:00 78 22 75/44 99 02/26/24 20:37 76 29 H 80/44 100 02/26/24 20:30 76/36 02/26/24 20:15 76 25 H 73/47 100 02/26/24 20:00 76 24 74/47 98 02/26/24 19:44 99 02/26/24 19:30 70 25 H 72/45 99 02/26/24 19:15 97.4 F 67 20 74/42 98 Pain Assessment - Last Documented Pain Intensity 0 Intake and Output: Intake & Output 02/24/24 02/25/24 02/26/24 02/27/24 11:59 11:59 11:59 11:59 Intake Total 2627 Output Total 750 Balance 1877 Weight 136.6 kg LAB: I have reviewed the Labs in [email or web address]. Radiology Exams: Radiology Procedures Category Date Time Status ECHO W/2D AND DOPPLER [US] Routine Exams 02/27/24 09:40 Ordered Renal Ultrasound [KIDNEY] [US] Routine Exams 02/27/24 04:53 Completed Renal Ultrasound 02/27/2024: Bilateral renal simple cysts Venous Doppler of Bilateral Lower Extremities 01/07/2024: Negative for DVT Carotid Doppler 04/26/2023 : Left and right carotid arteries are negative for critical stenosis/obstruction. Velocity measurements and ratios are also negative for hemodynamically significant flow limiting stenosis. Tracing 1 Attestation: I have reviewed this EKG and interpreted as documented below. EKG Narrative: Transthoracic Echocardiogram 01/01/2023: 1) NORMAL LEFT VENTRICULAR SIZE WITH MODERATE LEFT VENTRICULAR HYPERTROPHY. 2) NORMAL LEFT VENTRICULAR SYSTOLIC FUNCTION WITH EJECTION FRACTION OF 55 TO 60%. 3) RIGHT VENTRICLE IS NORMAL SIZE AND NORMAL SYSTOLIC FUNCTION. 4) MODERATE AORTIC STENOSIS WITH PEAK AORTIC VALVE GRADIENT OF 29 MM OF MERCURY, MEAN AORTIC VALVE GRADIENT 21 MM OF MERCURY, AORTIC VALVE AREA 1.1 SQ/CM BY CONTINUITY EQUATION. AORTIC VALVE DIMENSION IS 0.33. THERE IS NO AORTIC REGURGITATION. 5) TRACE MITRAL REGURGITATION. 6) TRACE TRICUSPID REGURGITATION. UNABLE TO ESTIMATE RIGHT VENTRICULAR SYSTOLIC PRESSURE. 7) NO PERICARDIAL EFFUSION. Tracing 3 Attestation: I have reviewed this EKG and interpreted as documented below. EKG Narrative: ECGs: 02/27/2024 at 0202: NSR with first degree AV block at 78 bpm. Intervals: 0.20/0.097/0.384. ST and T wave abnormality, consider high lateral ischemia. 02/26/2024: Wandering baseline. NSR at 74bpm. ST and T wave abnormality, consider high lateral ischemia. Tracing 2 Attestation: I have reviewed this EKG and interpreted as documented below. EKG Narrative: ECG 06/19/2021: NSR at [address] abnormality. ST depression worse in high lateral leads. - ECHO Echo: report reviewed by me (Summary in ECG section) Assessment & Plan (1) GI bleed Current Visit: Yes Status: Acute Assessment & Plan: Most likely a lower GI bleed with BRBPR. Agrees with transfer to allow for much needed PRBC transfusions and work-up for source and treatment of GI bleeding. Timing to restart aspirin and Plavix will be based on future findings and patient's course. Code(s): K92.2 - GASTROINTESTINAL HEMORRHAGE, UNSPECIFIED (2) Hypotension Current Visit: Yes Status: Acute Assessment & Plan: Secondary to hemorrhagic GI bleed. Improved with IVFs initially and required Levophed this am. Matched blood products not available at this hospital until this evening. Agree with transfer to obtain needed blood products. Code(s): I95.9 - HYPOTENSION, UNSPECIFIED (3) Elevated troponin Current Visit: Yes Status: Acute Assessment & Plan: Represents demand ischemia related to her severe anemia and hypotension. Presentation is not consistent with acute coronary syndrome and elevated troponin with a flat pattern with initial 2 sets. Would continue to follow pattern over next 24 hours. Code(s): R79.89 - OTHER SPECIFIED ABNORMAL FINDINGS OF BLOOD CHEMISTRY (4) Atherosclerosis of coronary artery with angina pectoris Current Visit: Yes Status: Acute Qualifiers: Coronary Disease-Associated Artery/Lesion type: viejas artery Assessment & Plan: Single brief episode of angina yesterday related to her severe anemia and underlying CAD. Need to hold aspirin and Plavix in the setting of her acute GI bleed. Need to hold carvedilol in the setting of her hypotension requiring pressor support until she receives needed blood transfusions. Code(s): I25.119 - ATHSCL HEART DISEASE OF NISQUALLY COR ART W UNSP ANG PCTRS (5) Volume overload Current Visit: Yes Status: Acute Assessment & Plan: Secondary to IV fluid boluses as she was obviously volume depleted at presentation with her hemorrhagic blood loss. Anticipate treating with IV furosemide with her PRBC transfusions. Will hold off now with her on Levophed without respiratory distress. Code(s): E87.70 - FLUID OVERLOAD, UNSPECIFIED (6) Aortic stenosis, moderate Current Visit: Yes Status: Acute Assessment & Plan: documented on 12/2023 echocardiogram. It will be important to avoid further bouts of hypotension. Code(s): I35.0 - NONRHEUMATIC AORTIC (VALVE) STENOSIS - Encounter Encounter: "The entirety of this encounter was performed via Telemedicine using audio and visual "
[2024-02-27] MEDS: NOREPINEPHRINE 8 MG/250 ML-D5W 8 MG/250 ML PLAST..BAG IV PRN (10:39)
--- NOTE | 2024-02-27 10:42 | PCM.DS ---
Discharge Summary Date of Admission: 02/27/24 02:29 Date of Discharge: 02/27/24 Admitting Physician: IGGY BRYSON MD Consults: Consults on Case 02/27/24 07:23 Consult Surgery ROUTINE 02/27/24 08:18 Consult Cardiology ROUTINE 02/27/24 09:14 Consult Podiatry ROUTINE Primary Care Provider: AVA CORONEL Allergies Allergies penicillin G Allergy (Severe, Verified 02/26/24 19:19) Hospital Summary - Hospital Course Hospital Course: 02/27/24 Ms. CLOUD is a 73 year old female with a past medical history significant for hypertension, hyperlipidemia,type II DM, CAD, [place], fibromyalgia, and obesity. She was brought to the ER on 02/26/24 by her with complaints of severe weakness and lethargy. She reportedly has bad eyesight but noted that she has been passing dark/bloody stools. Pt states she has had loose stools for up to a week. Upon arrival, she was found to be markedly anemic with a hemoglobin of 4.5 and a creatinine of 2.15 associated with a bicarb of 17. She is difficult to obtain a full history from and is a poor historian. Initial troponin was slightly elevated and trended down with some ischemic changes on EKG but she denies any chest pain, shortness of breath or palpitations.Today BP dropped to 67/31.1Lfluid bolus gave. Tx to ICU. Levophed gtt and IVF started. Hgbis 6.6 after 3 units. Lab called and explained we do not have the blood she needs until after 4:30 pm. Pt will need transferred for GI bleed, anemia, hypotension. Pt accepted by dr. Casiano @ [facility]. - Vitals & Intake/Output Vital Signs: Vital Signs Temperature 97.1 F 02/27/24 02:16 Pulse Rate 78 02/27/24 02:16 Respiratory Rate 18 02/27/24 02:16 Blood Pressure 107/58 02/27/24 02:16 O2 Sat by Pulse Oximetry 100 02/27/24 07:36 Intake & Output: Intake & Output 02/24/24 02/25/24 02/26/24 02/27/24 11:59 11:59 11:59 11:59 Intake Total 2627 Output Total 750 Balance 1877 Weight 136.6 kg - Lab Result Diagrams: 02/27/24 08:00 02/27/24 08:00 Lab Results-Last 24 Hrs: Lab Results-Last 24 Hours 02/26/24 02/26/24 02/26/24 Range/Units 19:44 19:46 19:55 WBC 14.3 H (3.98-10.04) x10^3/uL RBC 1.54 L (3.93-5.22) x10^6/uL Hgb 4.0 L* (11.2-15.7) g/dL Hct 13.9 L (34.1-44.9) % MCV 90.3 (79.4-94.8) fL MCH 26.0 (25.6-32.2) pg MCHC 28.8 L (32.2-35.5) g/dL RDW 17.5 H (11.7-14.4) % Plt Count 314 (182-369) x10^3/uL MPV 8.8 L (9.4-12.3) fL Gran % 76.6 H (34.0-71.1) % Immature Gran % (Auto) 2.4 H (0.001-0.429) % Nucleat RBC Rel Count 2.9 H (0.00-0.2) % Eos # (Auto) 0.03 L (0.04-0.36) x10^3/uL Immature Gran # (Auto) 0.34 H (0.001-0.031) x10^3u/L Absolute Lymphs (auto) 2.00 (1.18-3.74) x10^3/uL Absolute Monos (auto) 0.92 H (0.24-0.86) x10^3/uL Absolute Nucleated RBC 0.41 H (0.00-0.012) x10^3u/L Lymphocytes % 14.0 L (19.3-51.7) % Monocytes % 6.4 (4.7-12.5) % Eosinophils % 0.2 L (0.7-5.8) % Basophils % 0.4 (0.1-1.2) % Absolute Granulocytes 10.92 H (1.56-6.13) x10^3/uL Basophils # 0.06 (0.01-0.08) x10^3/uL D-Dimer (0.0-0.50) mg/L Puncture Site LRA pCO2 38 (35-45) mmHg pO2 108 H (75-100) mmHg Base Excess -9.1 L (-2.0-2.0) O2 Saturation 96.4 (94-100) g/dF ABG pH 7.26 L (7.35-7.45) ABG HCO3 17.1 L (22-28) ABG O2 Sat (Measured) 98.8 (95-100) % Quentin Test YES A-a Gradient 130 a/A Ratio 0.45 Hemoglobin 4.4 L* Carboxyhemoglobin 1.1 (0.0-6.9) % THgb Methemoglobin 1.4 (1.4-1.5) % Potassium 5.0 (3.5-5.1) Temperature 37.0 C POC O2 Flow Rate 40 % Sodium (135-145) mmol/L Chloride (98-107) mmol/L Carbon Dioxide (22-30) mmol/L Anion Gap (5-15) MEQ/L BUN (7-17) mg/dL Creatinine (0.52-1.04) mg/dL Estimated GFR ML/MIN Glucose (74-106) mg/dL Lactic Acid 2.8 H (0.4-2.0) Calcium (8.4-10.2) mg/dL Magnesium (1.6-2.3) mg/dL Total Bilirubin (0.2-1.3) mg/dL AST (14-36) U/L ALT (0-35) U/L Alkaline Phosphatase (38-126) U/L Troponin I (0.000-0.033) ng/mL NT-Pro-B Natriuret Pep (<300) pg/mL Serum Total Protein (6.3-8.2) g/dL Albumin (3.5-5.0) g/dL Prealbumin (17.6-36.0) mg/dL Urine Color (Yellow) Urine Appearance (Clear) Urine pH (4.6-8.0) Ur Specific [employer] (1.005-1.030) Urine Protein (Negative) Urine Glucose (UA) (Negative) mg/dL Urine Ketones (Negative) Urine Blood (Negative) Urine Nitrite (Negative) Urine Bilirubin (Negative) Urine Urobilinogen (0.2) mg/dL Ur Leukocyte Esterase (Negative) U Hyaline Cast (Auto) (0-2) /LPF Urine Microscopic RBC (0-5) /HPF Urine Microscopic WBC (0-5) /HPF Ur Epithelial Cells (None Seen) /HPF Urine Bacteria (None Seen) /HPF Urine Culture Reflexed (NO) Ur Random Creatinine MG/DL U Random Total Protein (0-12) mg/dL Urine Sodium (30-90) mmol/L Ethyl Alcohol (0-10) mg/dL Slides for Path Review YES ABO Group Rh Factor Antibody Screen (NEGATIVE) Crossmatch (COMPATIBLE) 02/26/24 02/26/24 02/26/24 Range/Units 19:55 19:55 19:55 WBC (3.98-10.04) x10^3/uL RBC (3.93-5.22) x10^6/uL Hgb (11.2-15.7) g/dL Hct (34.1-44.9) % MCV (79.4-94.8) fL MCH (25.6-32.2) pg MCHC (32.2-35.5) g/dL RDW (11.7-14.4) % Plt Count (182-369) x10^3/uL MPV (9.4-12.3) fL Gran % (34.0-71.1) % Immature Gran % (Auto) (0.001-0.429) % Nucleat RBC Rel Count (0.00-0.2) % Eos # (Auto) (0.04-0.36) x10^3/uL Immature Gran # (Auto) (0.001-0.031) x10^3u/L Absolute Lymphs (auto) (1.18-3.74) x10^3/uL Absolute Monos (auto) (0.24-0.86) x10^3/uL Absolute Nucleated RBC (0.00-0.012) x10^3u/L Lymphocytes % (19.3-51.7) % Monocytes % (4.7-12.5) % Eosinophils % (0.7-5.8) % Basophils % (0.1-1.2) % Absolute Granulocytes (1.56-6.13) x10^3/uL Basophils # (0.01-0.08) x10^3/uL D-Dimer 1.10 H* (0.0-0.50) mg/L Puncture Site pCO2 (35-45) mmHg pO2 (75-100) mmHg Base Excess (-2.0-2.0) O2 Saturation (94-100) g/dF ABG pH (7.35-7.45) ABG HCO3 (22-28) ABG O2 Sat (Measured) (95-100) % Quentin Test A-a Gradient a/A Ratio Hemoglobin Carboxyhemoglobin (0.0-6.9) % THgb Methemoglobin (1.4-1.5) % Potassium 4.7 (3.5-5.1) Temperature C POC O2 Flow Rate % Sodium 137 (135-145) mmol/L Chloride 111 H (98-107) mmol/L Carbon Dioxide 15 L* (22-30) mmol/L Anion Gap 16.9 H (5-15) MEQ/L BUN 38 H (7-17) mg/dL Creatinine 2.16 H (0.52-1.04) mg/dL Estimated GFR 23.8 ML/MIN Glucose 136 H (74-106) mg/dL Lactic Acid (0.4-2.0) Calcium 8.8 (8.4-10.2) mg/dL Magnesium (1.6-2.3) mg/dL Total Bilirubin 0.50 (0.2-1.3) mg/dL AST 20 (14-36) U/L ALT 14 (0-35) U/L Alkaline Phosphatase 69 (38-126) U/L Troponin I 0.617 H* (0.000-0.033) ng/mL NT-Pro-B Natriuret Pep (<300) pg/mL Serum Total Protein 5.8 L (6.3-8.2) g/dL Albumin 3.1 L (3.5-5.0) g/dL Prealbumin (17.6-36.0) mg/dL Urine Color (Yellow) Urine Appearance (Clear) Urine pH (4.6-8.0) Ur Specific [employer] (1.005-1.030) Urine Protein (Negative) Urine Glucose (UA) (Negative) mg/dL Urine Ketones (Negative) Urine Blood (Negative) Urine Nitrite (Negative) Urine Bilirubin (Negative) Urine Urobilinogen (0.2) mg/dL Ur Leukocyte Esterase (Negative) U Hyaline Cast (Auto) (0-2) /LPF Urine Microscopic RBC (0-5) /HPF Urine Microscopic WBC (0-5) /HPF Ur Epithelial Cells (None Seen) /HPF Urine Bacteria (None Seen) /HPF Urine Culture Reflexed (NO) Ur Random Creatinine MG/DL U Random Total Protein (0-12) mg/dL Urine Sodium (30-90) mmol/L Ethyl Alcohol < 10 (0-10) mg/dL Slides for Path Review ABO Group Rh Factor Antibody Screen (NEGATIVE) Crossmatch (COMPATIBLE) 02/26/24 02/26/24 02/26/24 Range/Units 19:55 20:28 20:28 WBC (3.98-10.04) x10^3/uL RBC (3.93-5.22) x10^6/uL Hgb (11.2-15.7) g/dL Hct (34.1-44.9) % MCV (79.4-94.8) fL MCH (25.6-32.2) pg MCHC (32.2-35.5) g/dL RDW (11.7-14.4) % Plt Count (182-369) x10^3/uL MPV (9.4-12.3) fL Gran % (34.0-71.1) % Immature Gran % (Auto) (0.001-0.429) % Nucleat RBC Rel Count (0.00-0.2) % Eos # (Auto) (0.04-0.36) x10^3/uL Immature Gran # (Auto) (0.001-0.031) x10^3u/L Absolute Lymphs (auto) (1.18-3.74) x10^3/uL Absolute Monos (auto) (0.24-0.86) x10^3/uL Absolute Nucleated RBC (0.00-0.012) x10^3u/L Lymphocytes % (19.3-51.7) % Monocytes % (4.7-12.5) % Eosinophils % (0.7-5.8) % Basophils % (0.1-1.2) % Absolute Granulocytes (1.56-6.13) x10^3/uL Basophils # (0.01-0.08) x10^3/uL D-Dimer (0.0-0.50) mg/L Puncture Site pCO2 (35-45) mmHg pO2 (75-100) mmHg Base Excess (-2.0-2.0) O2 Saturation (94-100) g/dF ABG pH (7.35-7.45) ABG HCO3 (22-28) ABG O2 Sat (Measured) (95-100) % Quentin Test A-a Gradient a/A Ratio Hemoglobin Carboxyhemoglobin (0.0-6.9) % THgb Methemoglobin (1.4-1.5) % Potassium (3.5-5.1) Temperature C POC O2 Flow Rate % Sodium (135-145) mmol/L Chloride (98-107) mmol/L Carbon Dioxide (22-30) mmol/L Anion Gap (5-15) MEQ/L BUN (7-17) mg/dL Creatinine (0.52-1.04) mg/dL Estimated GFR ML/MIN Glucose (74-106) mg/dL Lactic Acid (0.4-2.0) Calcium (8.4-10.2) mg/dL Magnesium (1.6-2.3) mg/dL Total Bilirubin (0.2-1.3) mg/dL AST (14-36) U/L ALT (0-35) U/L Alkaline Phosphatase (38-126) U/L Troponin I (0.000-0.033) ng/mL NT-Pro-B Natriuret Pep 4680 (<300) pg/mL Serum Total Protein (6.3-8.2) g/dL Albumin (3.5-5.0) g/dL Prealbumin (17.6-36.0) mg/dL Urine Color (Yellow) Urine Appearance (Clear) Urine pH (4.6-8.0) Ur Specific [employer] (1.005-1.030) Urine Protein (Negative) Urine Glucose (UA) (Negative) mg/dL Urine Ketones (Negative) Urine Blood (Negative) Urine Nitrite (Negative) Urine Bilirubin (Negative) Urine Urobilinogen (0.2) mg/dL Ur Leukocyte Esterase (Negative) U Hyaline Cast (Auto) (0-2) /LPF Urine Microscopic RBC (0-5) /HPF Urine Microscopic WBC (0-5) /HPF Ur Epithelial Cells (None Seen) /HPF Urine Bacteria (None Seen) /HPF Urine Culture Reflexed (NO) Ur Random Creatinine MG/DL U Random Total Protein (0-12) mg/dL Urine Sodium (30-90) mmol/L Ethyl Alcohol (0-10) mg/dL Slides for Path Review ABO Group O Rh Factor POSITIVE Antibody Screen NEGATIVE (NEGATIVE) Crossmatch COMPATIBLE COMPATIBLE (COMPATIBLE) 02/26/24 02/26/24 02/26/24 Range/Units 20:28 21:57 23:20 WBC (3.98-10.04) x10^3/uL RBC (3.93-5.22) x10^6/uL Hgb (11.2-15.7) g/dL Hct (34.1-44.9) % MCV (79.4-94.8) fL MCH (25.6-32.2) pg MCHC (32.2-35.5) g/dL RDW (11.7-14.4) % Plt Count (182-369) x10^3/uL MPV (9.4-12.3) fL Gran % (34.0-71.1) % Immature Gran % (Auto) (0.001-0.429) % Nucleat RBC Rel Count (0.00-0.2) % Eos # (Auto) (0.04-0.36) x10^3/uL Immature Gran # (Auto) (0.001-0.031) x10^3u/L Absolute Lymphs (auto) (1.18-3.74) x10^3/uL Absolute Monos (auto) (0.24-0.86) x10^3/uL Absolute Nucleated RBC (0.00-0.012) x10^3u/L Lymphocytes % (19.3-51.7) % Monocytes % (4.7-12.5) % Eosinophils % (0.7-5.8) % Basophils % (0.1-1.2) % Absolute Granulocytes (1.56-6.13) x10^3/uL Basophils # (0.01-0.08) x10^3/uL D-Dimer (0.0-0.50) mg/L Puncture Site pCO2 (35-45) mmHg pO2 (75-100) mmHg Base Excess (-2.0-2.0) O2 Saturation (94-100) g/dF ABG pH (7.35-7.45) ABG HCO3 (22-28) ABG O2 Sat (Measured) (95-100) % Quentin Test A-a Gradient a/A Ratio Hemoglobin Carboxyhemoglobin (0.0-6.9) % THgb Methemoglobin (1.4-1.5) % Potassium (3.5-5.1) Temperature C POC O2 Flow Rate % Sodium (135-145) mmol/L Chloride (98-107) mmol/L Carbon Dioxide (22-30) mmol/L Anion Gap (5-15) MEQ/L BUN (7-17) mg/dL Creatinine (0.52-1.04) mg/dL Estimated GFR ML/MIN Glucose (74-106) mg/dL Lactic Acid 1.0 (0.4-2.0) Calcium (8.4-10.2) mg/dL Magnesium (1.6-2.3) mg/dL Total Bilirubin (0.2-1.3) mg/dL AST (14-36) U/L ALT (0-35) U/L Alkaline Phosphatase (38-126) U/L Troponin I 0.562 H* (0.000-0.033) ng/mL NT-Pro-B Natriuret Pep (<300) pg/mL Serum Total Protein (6.3-8.2) g/dL Albumin (3.5-5.0) g/dL Prealbumin (17.6-36.0) mg/dL Urine Color (Yellow) Urine Appearance (Clear) Urine pH (4.6-8.0) Ur Specific [employer] (1.005-1.030) Urine Protein (Negative) Urine Glucose (UA) (Negative) mg/dL Urine Ketones (Negative) Urine Blood (Negative) Urine Nitrite (Negative) Urine Bilirubin (Negative) Urine Urobilinogen (0.2) mg/dL Ur Leukocyte Esterase (Negative) U Hyaline Cast (Auto) (0-2) /LPF Urine Microscopic RBC (0-5) /HPF Urine Microscopic WBC (0-5) /HPF Ur Epithelial Cells (None Seen) /HPF Urine Bacteria (None Seen) /HPF Urine Culture Reflexed (NO) Ur Random Creatinine MG/DL U Random Total Protein (0-12) mg/dL Urine Sodium (30-90) mmol/L Ethyl Alcohol (0-10) mg/dL Slides for Path Review ABO Group Rh Factor Antibody Screen (NEGATIVE) Crossmatch COMPATIBLE (COMPATIBLE) 02/27/24 02/27/24 02/27/24 Range/Units 00:00 00:00 01:34 WBC (3.98-10.04) x10^3/uL RBC (3.93-5.22) x10^6/uL Hgb (11.2-15.7) g/dL Hct (34.1-44.9) % MCV (79.4-94.8) fL MCH (25.6-32.2) pg MCHC (32.2-35.5) g/dL RDW (11.7-14.4) % Plt Count (182-369) x10^3/uL MPV (9.4-12.3) fL Gran % (34.0-71.1) % Immature Gran % (Auto) (0.001-0.429) % Nucleat RBC Rel Count (0.00-0.2) % Eos # (Auto) (0.04-0.36) x10^3/uL Immature Gran # (Auto) (0.001-0.031) x10^3u/L Absolute Lymphs (auto) (1.18-3.74) x10^3/uL Absolute Monos (auto) (0.24-0.86) x10^3/uL Absolute Nucleated RBC (0.00-0.012) x10^3u/L Lymphocytes % (19.3-51.7) % Monocytes % (4.7-12.5) % Eosinophils % (0.7-5.8) % Basophils % (0.1-1.2) % Absolute Granulocytes (1.56-6.13) x10^3/uL Basophils # (0.01-0.08) x10^3/uL D-Dimer (0.0-0.50) mg/L Puncture Site pCO2 (35-45) mmHg pO2 (75-100) mmHg Base Excess (-2.0-2.0) O2 Saturation (94-100) g/dF ABG pH (7.35-7.45) ABG HCO3 (22-28) ABG O2 Sat (Measured) (95-100) % Quentin Test A-a Gradient a/A Ratio Hemoglobin Carboxyhemoglobin (0.0-6.9) % THgb Methemoglobin (1.4-1.5) % Potassium (3.5-5.1) Temperature C POC O2 Flow Rate % Sodium (135-145) mmol/L Chloride (98-107) mmol/L Carbon Dioxide (22-30) mmol/L Anion Gap (5-15) MEQ/L BUN (7-17) mg/dL Creatinine (0.52-1.04) mg/dL Estimated GFR ML/MIN Glucose (74-106) mg/dL Lactic Acid (0.4-2.0) Calcium (8.4-10.2) mg/dL Magnesium (1.6-2.3) mg/dL Total Bilirubin (0.2-1.3) mg/dL AST (14-36) U/L ALT (0-35) U/L Alkaline Phosphatase (38-126) U/L Troponin I (0.000-0.033) ng/mL NT-Pro-B Natriuret Pep (<300) pg/mL Serum Total Protein (6.3-8.2) g/dL Albumin (3.5-5.0) g/dL Prealbumin (17.6-36.0) mg/dL Urine Color Yellow (Yellow) Urine Appearance Clear (Clear) Urine pH 5.0 (4.6-8.0) Ur Specific [employer] 1.020 (1.005-1.030) Urine Protein 30 (Negative) Urine Glucose (UA) Negative (Negative) mg/dL Urine Ketones Trace A (Negative) Urine Blood Negative (Negative) Urine Nitrite Negative (Negative) Urine Bilirubin Negative (Negative) Urine Urobilinogen 1.0 A (0.2) mg/dL Ur Leukocyte Esterase Trace A (Negative) U Hyaline Cast (Auto) >50 A (0-2) /LPF Urine Microscopic RBC 0-2 (0-5) /HPF Urine Microscopic WBC 0-2 (0-5) /HPF Ur Epithelial Cells Few (None Seen) /HPF Urine Bacteria None Seen (None Seen) /HPF Urine Culture Reflexed ORDERED SEPARATELY (NO) Ur Random Creatinine 211.8 MG/DL U Random Total Protein 26 H 26 H (0-12) mg/dL Urine Sodium 23 L (30-90) mmol/L Ethyl Alcohol (0-10) mg/dL Slides for Path Review ABO Group Rh Factor Antibody Screen (NEGATIVE) Crossmatch (COMPATIBLE) 02/27/24 02/27/24 02/27/24 Range/Units 08:00 08:00 08:00 WBC 14.4 H (3.98-10.04) x10^3/uL RBC 2.47 L (3.93-5.22) x10^6/uL Hgb 6.6 L* D (11.2-15.7) g/dL Hct 22.0 L (34.1-44.9) % MCV 89.1 (79.4-94.8) fL MCH 26.7 (25.6-32.2) pg MCHC 30.0 L (32.2-35.5) g/dL RDW 16.5 H (11.7-14.4) % Plt Count 289 (182-369) x10^3/uL MPV 8.8 L (9.4-12.3) fL Gran % (34.0-71.1) % Immature Gran % (Auto) (0.001-0.429) % Nucleat RBC Rel Count (0.00-0.2) % Eos # (Auto) (0.04-0.36) x10^3/uL Immature Gran # (Auto) (0.001-0.031) x10^3u/L Absolute Lymphs (auto) (1.18-3.74) x10^3/uL Absolute Monos (auto) (0.24-0.86) x10^3/uL Absolute Nucleated RBC (0.00-0.012) x10^3u/L Lymphocytes % (19.3-51.7) % Monocytes % (4.7-12.5) % Eosinophils % (0.7-5.8) % Basophils % (0.1-1.2) % Absolute Granulocytes (1.56-6.13) x10^3/uL Basophils # (0.01-0.08) x10^3/uL D-Dimer (0.0-0.50) mg/L Puncture Site pCO2 (35-45) mmHg pO2 (75-100) mmHg Base Excess (-2.0-2.0) O2 Saturation (94-100) g/dF ABG pH (7.35-7.45) ABG HCO3 (22-28) ABG O2 Sat (Measured) (95-100) % Quentin Test A-a Gradient a/A Ratio Hemoglobin Carboxyhemoglobin (0.0-6.9) % THgb Methemoglobin (1.4-1.5) % Potassium 4.3 (3.5-5.1) Temperature C POC O2 Flow Rate % Sodium 139 (135-145) mmol/L Chloride 110 H (98-107) mmol/L Carbon Dioxide 18 L (22-30) mmol/L Anion Gap 14.7 (5-15) MEQ/L BUN 41 H (7-17) mg/dL Creatinine 2.21 H (0.52-1.04) mg/dL Estimated GFR 23.1 ML/MIN Glucose 106 (74-106) mg/dL Lactic Acid (0.4-2.0) Calcium 8.9 (8.4-10.2) mg/dL Magnesium 2.4 H (1.6-2.3) mg/dL Total Bilirubin 0.60 (0.2-1.3) mg/dL AST 27 (14-36) U/L ALT 13 (0-35) U/L Alkaline Phosphatase 68 (38-126) U/L Troponin I 0.540 H* (0.000-0.033) ng/mL NT-Pro-B Natriuret Pep (<300) pg/mL Serum Total Protein 6.0 L (6.3-8.2) g/dL Albumin 3.2 L (3.5-5.0) g/dL Prealbumin 11.63 L (17.6-36.0) mg/dL Urine Color (Yellow) Urine Appearance (Clear) Urine pH (4.6-8.0) Ur Specific [employer] (1.005-1.030) Urine Protein (Negative) Urine Glucose (UA) (Negative) mg/dL Urine Ketones (Negative) Urine Blood (Negative) Urine Nitrite (Negative) Urine Bilirubin (Negative) Urine Urobilinogen (0.2) mg/dL Ur Leukocyte Esterase (Negative) U Hyaline Cast (Auto) (0-2) /LPF Urine Microscopic RBC (0-5) /HPF Urine Microscopic WBC (0-5) /HPF Ur Epithelial Cells (None Seen) /HPF Urine Bacteria (None Seen) /HPF Urine Culture Reflexed (NO) Ur Random Creatinine MG/DL U Random Total Protein (0-12) mg/dL Urine Sodium (30-90) mmol/L Ethyl Alcohol (0-10) mg/dL Slides for Path Review ABO Group Rh Factor Antibody Screen (NEGATIVE) Crossmatch (COMPATIBLE) - Radiology Exams Ordered Rad Exams-Entire Visit: Radiology Procedures Category Date Time Status ECHO W/2D AND DOPPLER [US] Routine Exams 02/27/24 09:09 Stop Req ECHO W/2D AND DOPPLER [US] Routine Exams 02/27/24 09:40 Ordered Renal Ultrasound [KIDNEY] [US] Routine Exams 02/27/24 04:53 Completed - Procedures and Test Procedures and Tests throughout Hospitalization: Therapy Orders & Screens 02/27/24 07:36 Oxygen NASAL CANNULA 2 lpm Comment: Diagnosis: weakness Discharge Exam General Appearance: no apparent distress, alert, obese Neurologic Exam: alert, oriented x 3, cooperative, nml cerebellar function, sensation nml, motor weakness, No motor deficits Eye Exam: PERRL, EOMI, eyes nml inspection Ears, Nose, Throat Exam: normal ENT inspection, pharynx normal, moist mucous membranes Neck Exam: normal inspection, non-tender, supple, full range of motion Respiratory Exam: normal breath sounds, lungs clear, No respiratory distress Cardiovascular Exam: regular rate/rhythm, normal heart sounds Gastrointestinal/Abdomen Exam: soft, No tenderness, No mass Pelvic Exam: deferred Rectal Exam: deferred Back Exam: normal inspection, normal range of motion, No CVA tenderness, No vertebral tenderness Extremity Exam: normal inspection, normal range of motion Skin Exam: warm, dry, pale Final Diagnosis/Problem List - Final Discharge Diagnosis/Problem (1) GI bleed Current Visit: Yes Status: Acute Assessment & Plan: - Hgb 4.0 on admission- trend - After 3 units of PRBC 6.6- 2 more units ordered but not given - Lab called and stated no blood available until after 4:30 or later this evening - Protonix gtt started - Protonix IV gave in ER - plavix stopped - NPO - Tele Code(s): K92.2 - GASTROINTESTINAL HEMORRHAGE, UNSPECIFIED (2) Hypotension Current Visit: Yes Status: Acute Assessment & Plan: -2:2 GI bleed and anemia - BP 67/31 @ 8am -1L NS fluid bolus - tx ICU bed- tele- monitor BP Q15- 30 minutes - Levophed and IVF started - consider repeat fluid bolus- consider fluid overload as pt has heart murmur Code(s): I95.9 - HYPOTENSION, UNSPECIFIED (3) Acute renal injury Current Visit: Yes Status: Acute Assessment & Plan: - creat 2.21, baseline 0.73-worse today - 2:2 anemia - IVF - renal US - Follow I/O's - [place] in place for required immobilization/weakness, severe anemia. Code(s): N17.9 - ACUTE KIDNEY FAILURE, UNSPECIFIED (4) Elevated troponin Current Visit: Yes Status: Acute Assessment & Plan: -trops 0.617,0.562,0.540 - EKG reviewed - Tele- ICU - cardiology consulted -Defer ASA d/t GI bleed -Echo-pending -Transthoracic Echocardiogram 01/01/2023: 1) NORMAL LEFT VENTRICULAR SIZE WITH MODERATE LEFT VENTRICULAR HYPERTROPHY. 2) NORMAL LEFT VENTRICULAR SYSTOLIC FUNCTION WITH EJECTION FRACTION OF 55 TO 60%. 3) RIGHT VENTRICLE IS NORMAL SIZE AND NORMAL SYSTOLIC FUNCTION. 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 AORTIC VALVE DIMENSION IS 0.33. THERE IS NO AORTIC REGURGITATION. 5) TRACE MITRAL REGURGITATION. 6) TRACE TRICUSPID REGURGITATION. UNABLE TO ESTIMATE RIGHT VENTRICULAR SYSTOLIC PRESSURE. 7) NO PERICARDIAL EFFUSION. Code(s): R79.89 - OTHER SPECIFIED ABNORMAL FINDINGS OF BLOOD CHEMISTRY (5) High anion gap metabolic acidosis Current Visit: Yes Status: Acute Assessment & Plan: -Anion gap 14.7-resolved with IVF Code(s): E87.29 - OTHER ACIDOSIS (6) Lactic acidosis Current Visit: Yes Status: Acute Code(s): E87.20 - ACIDOSIS, UNSPECIFIED (7) Leukocytosis Current Visit: Yes Status: Acute Assessment & Plan: - WBC 14.4-trend -2:2 BLLE wounds?, reactive? Code(s): D72.829 - ELEVATED WHITE BLOOD CELL COUNT, UNSPECIFIED (8) Elevated d-dimer Current Visit: No Status: Acute Assessment & Plan: -Trop1.10 - Unable to do CTA d/t SUSANNA - unable to give blood thinners d/t anemia - SCD's Code(s): R79.89 - OTHER SPECIFIED ABNORMAL FINDINGS OF BLOOD CHEMISTRY (9) Pain in both lower legs Current Visit: Yes Status: Acute Assessment & Plan: - Pt has been following podiatry OP and BLLE wrapped - Podiatry consulted for continued f/u care. Code(s): M79.661 - PAIN IN RIGHT LOWER LEG; M79.662 - PAIN IN LEFT LOWER LEG - Discharge Discharge Date: 02/27/24 ([facility]) Disposition: DC TO OTHER HOSP Condition: Stable Prescriptions: Continue Metformin HCl 500 mg [Glucophage 500 MG] 500 mg PO BID Aspirin EC 81 mg [Ecotrin 81 mg] 81 mg PO DAILY Valsartan 80 mg PO DAILY Clopidogrel Bisulfate [Clopidogrel] 75 mg PO DAILY Potassium Chloride 10 meq PO DAILY Carvedilol 12.5 mg [Coreg 12.5 mg] 12.5 mg PO DAILY Furosemide 40 mg [Lasix 40 MG] 40 mg PO DAILY Duloxetine HCl [Cymbalta] 60 mg PO DAILY Rosuvastatin Calcium 20 mg PO DAILY Nitroglycerin 0.4 mg Tablet [Nitrostat 0.4 MG Tablet] 0.4 mg PO Q5MIN PRN MR X 3 PRN PRN Reason: Chest Pain Follow up with: AVA CORONEL NP [Primary Care Provider] -
[2024-02-27] MEDS: PROTONIX 40 MG IV*** 80 MG in Sodium Chloride 0.9% 500 ML 500 ML IV SCH (11:33)
[2024-02-27 12:10] VITALS: TEMP 98.7
[2024-02-27 12:39] VITALS: O2SAT 97
[2024-02-27 14:01] VITALS: BP 96/54; PULSE 83; RESP 22
[2024-02-28 15:13] LABS: Albumin 2.8 g/dL (2.9-4.4); Alpha-1-Globulin 0.3 g/dL (0.0-0.4); Alpha-2-Globulin 0.8 g/dL (0.4-1.0); Gamma Globulin 0.7 g/dL (0.4-1.8); Protein, Total 5.5 g/dL (6.0-8.5)
== END 2024-02-27 13:49 ==
LOC: ED 19:15 → MED SURG 02-27 02:29 → ICU 02-27 09:42
PROVIDERS: ADMIT Internal Medicine Nephrology; ATTEND Internal Medicine Nephrology
DX: K92.2 Gastrointestinal hemorrhage, unspecified (principal); I95.9 Hypotension, unspecified; N17.9 Acute kidney failure, unspecified; R79.89 Other specified abnormal findings of blood chemistry; E87.29 Other acidosis; E87.20 Acidosis, unspecified; D72.829 Elevated white blood cell count, unspecified; M79.661 Pain in right lower leg; M79.662 Pain in left lower leg; I10 Essential (primary) hypertension; E78.5 Hyperlipidemia, unspecified; E66.9 Obesity, unspecified; I25.2 Old myocardial infarction; E11.621 Type 2 diabetes mellitus with foot ulcer; Z79.899 Other long term (current) drug therapy
CPT/HCPCS: 36000; 36415; 36430; 36600; 51702; 76770; 80053; 81001; 82077; 82375; 82570; 82803; 82947; 83036; 83521; 83540; 83605; 83735; 83880; 84134; 84156; 84165; 84300; 84484; 85025; 85027; 85379; 86850; 86900; 86901; 86922; 87086; 93005; 93041; 93306; 94760; 94762; 96374; 96375; P9016; Q3014; 93268; 99284; J1940; G0378

== ENCOUNTER 2025-07-17 10:40 | Emergency (ER) | payer MEDICARE ==
[2025-07-17] MEDS ORDERED: D50W 50 ml Abboject IV ONE (10:43)
[2025-07-17] MEDS: D50W 50 ml Abboject IV ONE (11:02)
--- NOTE | 2025-07-17 11:02 | ERPHSYRPT ---
- History of Present Illness Time Seen by Provider: 07/17/25 10:40 Source: patient (limited because of mental status), EMS Physician History: CC: Shortness of breath HPI: history from nursing triage notes, EMS. Limited from patient because she is not answering all questions Patient notes that she has had shortness of breath possibly for couple of days she notes "I've had a terrible cough" for several days. By her description the cough is nonproductive. EMS had noted that her blood glucose was in the mid 50s and here in the ER it is in the mid 30s. IV access had been established by EMS and IV dextrose is ordered and the nurse will be administering this during the intake/triage process. EMS has had difficulty getting blood pressure to come up. It has been diminished at mid 70s over mid 30s and we are trying to obtain vital signs at this time. She does improve her lucidity after having the IV dextrose. She is able to answer questions. She does have a good radial pulse which is tachycardic. EMS did administer 500 mL fluid bolus of normal saline. I have also ordered after my exam 500 mL lactated Ringer's pending labs. She does have edema at the lower extremities bilaterally I am uncertain if this is chronic or usual as she does not answer the question but it seems like she has chronic stasis changes _ lives at _residence Pulseox: 88 to 90% % on RA normal for COPD with chronic oxygen dependency ROS not available from patient because of her condition Aspirin Treatment Today: unknown Allergies/Adverse Reactions: penicillin G Allergy (Severe, Verified 02/26/24 19:19) Home Medications: Aspirin EC 81 mg [Ecotrin 81 mg] 81 mg PO DAILY 02/27/24 [History] Carvedilol 12.5 mg [Coreg 12.5 mg] 12.5 mg PO DAILY 02/27/24 [History] Clopidogrel Bisulfate [Clopidogrel] 75 mg PO DAILY 02/27/24 [History] Duloxetine HCl [Cymbalta] 60 mg PO DAILY 02/27/24 [History] Furosemide 40 mg [Lasix 40 MG] 40 mg PO DAILY 02/27/24 [History] Metformin HCl 500 mg [Glucophage 500 MG] 500 mg PO BID 02/27/24 [History] Nitroglycerin 0.4 mg Tablet [Nitrostat 0.4 MG Tablet] 0.4 mg PO Q5MIN PRN MR X 3 PRN 02/27/24 [History] Potassium Chloride 10 meq PO DAILY 02/27/24 [History] Rosuvastatin Calcium 20 mg PO DAILY 02/27/24 [History] Valsartan 80 mg PO DAILY 02/27/24 [History] Hx Tetanus, Diphtheria Vaccination/Date Given: Yes Hx Influenza Vaccination/Date Given: No Hx Pneumococcal Vaccination/Date Given: No Travel Risk - Emerging Infectious Disease Are you exhibiting symptoms associated with any current EIDs: Yes Symptoms: Shortness of Breath Comment: HGB 4.0 - Past Medical History Pertinent Past Medical History: Yes Neurological History: No Pertinent History ENT History: Cataracts Cardiac History: Coronary Artery Disease, Hypertension, Myocardial Infarction (CA) (06/2017) Respiratory History: No Pertinent History Endocrine Medical History: Diabetes Type II Musculoskeletal History: Fibromyalgia GI Medical History: No Pertinent History History: No Pertinent History Psycho-Social History: No Pertinent History Female Reproductive Disorders: No Pertinent History Other Medical History: Wounds to BLE that are being treated by Dr. Mendez. Pharmacy Sales Assistant: Dr. Mercer - Past Surgical History Past Surgical History: Yes Cardiac: Cardiac Catheterization, Cardiac Stent ([employer] JAYSON x4 06/10/2017 (unknown vessels)) Musculoskeletal: Orthopedic Surgery Other Surgical History: BACK, HANDS - Social History Smoking Status: Former smoker Exposure to second hand smoke: No Drug Use: none - Social Determinants of Health Will the patient participate in the screening: Yes Do you worry about a steady place to live?: No In the past 12 months,have you had to go without utilities?: No Transportation Issues: No Has anyone in your support network made you feel unsafe?: No Have you or anyone in your house had to go w/o enough food: No - Nursing Vital Signs Nursing Vital Signs: Initial Vital Signs Temperature 97.9 F 07/17/25 10:40 Pulse Rate 102 H 07/17/25 10:40 Respiratory Rate 36 H 07/17/25 10:40 O2 Sat by Pulse Oximetry 97 07/17/25 10:40 Pain Scale Pain Intensity 0 - Physical Exam General Appearance: other Procedures - Additional Procedures Progress: distressed , seems to be alert and is looking around. She answers questions with short responses. She seems to be somewhat stuporous nontoxic. No pain distress. Moderate to severe physiologic distress. Appears _to be chronically ill with acute decompensation/acute severe illness process. Eyes: EOMI, nonicteric, conjunctiva clear Throat: Moist mucous membranes. Dry lips Neck: supple, spontaneous ROM, nontender. trachea midline. No cervical or supraclavicular lymphadopathy. Thyroid nontender and normal size. Back: No pain on percussion. No muscle spasm. Nontender palpation. Severe Kyphosis. Lungs: CTA,but diminished throughout. nl effort, no rales, crackles, rhonchi, wheezes. Normal resonance on percussion. Cardiac: RRR S1, S2, without murmur or rub. Posterior tibial, Pedal pulses 1/4 bilaterally. 2-3+ pitting bilateral ankle or pretibial edema. Her extremities seem to be somewhat different in size at the lower calf/ankle. She does have evidence of venous stasis changes with brawny red skin on her lower extremities bilaterally. No unusual warmth. She does have proximately 1 cm abrasion at the right anterior mid tibia skin which seems to be healing She has a prior contusion approximately 3 cm diameter this is more of a hematoma it does have a wound marker around it and this is presumed to be old/nonacute. Skin: warm, dry, normal turgor. no gross rash. Moderate skin atrophy Abdom: Bowel sounds present but quiet x 4 Quadrants. Normal tympany to percussion. Soft. Non-distended. Nontender, no masses or organomegaly. No rebound, rigidity, or guarding. No pulsatile masses. Nonsurgical. Negative Maricruz's signs bilaterally Good muscle tone and moves all extremities. Images/videos for this study are not digitally archived (not possible on the ER US unit). Indication: [place] Protocol: the correct patient was verified. Views: lung apicies, lower lung hopson. Does have good cardiac motion and she does not have a pericardial effusion I do not identify any No pericardial effusion identified. Good lung pleural slide in four separate lung hopson. She does have some slight a lines bilaterally but no significant B-lines. I have not interrogated her IVC at this initial evaluation Impression: Good pleural slide in 4 separate lung quadrants, no evidence for overt air retention/COPD exacerbation or pulmonary effusion/congestive heart failure Shaan Bran M.D. - Course EKG Interpreted by Me: Other (1051 EKG with sinus tachycardia. There is bundle branch block with CA 0.16-0.20, QRS 0.12-0.20, left axis deviation, poor R wave progression. Comparison EKG 11/04/2024 with resolution of the prior atrial fibrillation but she has had lead placement change since and the new bundle branch block.STEMI ) Ordered Tests: Active Orders 24 hr Category Date Time Status Environmental Health Specialist STAT Care 07/17/25 10:52 Completed EKG-ER Only STAT Care 07/17/25 10:51 Completed IV Insertion STAT Care 07/17/25 10:51 Completed Oxygen-ED Only Nasal Cannula 3 lpm Care 07/17/25 10:51 Completed CBC W DIFF Stat Lab 07/17/25 11:20 Completed Hepatic Function Panel Stat Lab 07/17/25 11:20 Completed Lactic Acid Stat Lab 07/17/25 11:33 Completed NT PRO BNPII Stat Lab 07/17/25 11:20 Completed POCT GLUCOSE Stat Lab 07/17/25 11:05 Completed RENAL PANEL Stat Lab 07/17/25 11:20 Completed TROPONIN Q4H Lab 07/17/25 11:20 Completed VBG [VENOUS BLOOD GAS] Stat Lab 07/17/25 11:33 Completed Medication Summary Generic Name Dose Route Start Last Admin Trade Name Freq PRN Reason Stop Dose Admin Dopamine HCl/Dextrose 250 mls @ 0 mls/hr 07/17/25 11:12 Dopamine 400 Mg/D5w 250ml Premix IV 08/16/25 11:11 .Q0M PRN SEVERE HYPOTENSION Protocol 5 MCG/KG/MIN Discontinued Medications Generic Name Dose Route Start Last Admin Trade Name Freq PRN Reason Stop Dose Admin Dextrose Confirm 07/17/25 10:43 Dextrose 50%-Water 50 Ml Abboject Administered 07/17/25 10:44 Dose 50 ml IV .STK-MED ONE Dextrose 50 ml 07/17/25 11:01 07/17/25 11:02 Dextrose 50%-Water 50 Ml Abboject IV 07/17/25 11:02 50 ml STAT ONE Administration Heparin Sodium (Beef Lung) Confirm 07/17/25 11:14 Heparin 5000 Units/0.5 Ml 5,000 Unit/0.5 Ml Syr Administered 07/17/25 11:15 Dose 5,000 unit .ROUTE .STK-MED ONE Heparin Sodium (Beef Lung) 5,000 unit 07/17/25 11:14 07/17/25 11:28 Heparin 5000 Units/0.5 Ml 5,000 Unit/0.5 Ml Syr IV 07/17/25 11:15 5,000 unit STAT ONE Administration Lactated Ringer's 500 mls @ 1,000 mls/hr 07/17/25 10:56 07/17/25 11:04 Lactated Ringers IV 07/17/25 11:25 Not Given .Q30M ONE Lactated Ringer's 500 mls @ 999 mls/hr 07/17/25 11:04 07/17/25 11:05 Lactated Ringers IV 07/17/25 11:34 999 mls/hr .Q31M ONE Administration Dopamine HCl/Dextrose Confirm 07/17/25 11:13 Dopamine 400 Mg/D5w 250ml Premix Administered 07/17/25 11:14 Dose 250 mls @ ud IV .STK-MED ONE Ceftriaxone Sodium 1 gm in 100 mls @ 200 mls/hr 07/17/25 11:27 Rocephin 1 Gm / 100 Ml Nacl IV 07/17/25 11:56 STAT ONE Lab/Rad Data: Laboratory Result Diagrams 07/17/25 11:20 07/17/25 11:20 Laboratory Results 07/17/25 07/17/25 07/17/25 Range/Units 11:33 11:33 11:20 WBC (3.98-10.04) x10^3/uL RBC (3.93-5.22) x10^6/uL Hgb (11.2-15.7) g/dL Hct (34.1-44.9) % MCV (79.4-94.8) fL MCH (25.6-32.2) pg MCHC (32.2-35.5) g/dL RDW (11.7-14.4) % Plt Count (182-369) x10^3/uL MPV (9.4-12.3) fL Gran % (34.0-71.1) % Immature Gran % (Auto) (0.001-0.429) % Nucleat RBC Rel Count (0.00-0.2) % Eos # (Auto) (0.04-0.36) x10^3/uL Immature Gran # (Auto) (0.001-0.031) x10^3u/L Absolute Lymphs (auto) (1.18-3.74) x10^3/uL Absolute Monos (auto) (0.24-0.86) x10^3/uL Absolute Nucleated RBC (0.00-0.012) x10^3u/L Lymphocytes % (19.3-51.7) % Monocytes % (4.7-12.5) % Eosinophils % (0.7-5.8) % Basophils % (0.1-1.2) % Absolute Granulocytes (1.56-6.13) x10^3/uL Basophils # (0.01-0.08) x10^3/uL pO2/FiO2 Ratio 40.0 % VBG pH 7.20 L* (7.32-7.42) VBG pCO2 at Pat Temp 26 L (42-55) mm/Hg VBG pO2 at Pat Temp 42 H (25-40) mm/Hg VBG HCO3 10.2 L* (22-28) meq/L VBG O2 Sat (Chiquita) 64.2 L (95-100) VBG Base Excess -16.3 L (-2.0-2.0) VBG Hemoglobin 11.8 VBG Carboxyhemoglobin 4.1 (0.0-6.9) % T HGB POC Potassium 7.1 H* (3.5-5.1) Sodium (135-145) mmol/L Potassium (3.5-5.1) mmol/L Chloride (98-107) mmol/L Carbon Dioxide (22-30) mmol/L Anion Gap (5-15) MEQ/L BUN (7-17) mg/dL Creatinine (0.52-1.04) mg/dL Estimated GFR ML/MIN Glucose (74-106) mg/dL POC Glucometer (74 to 106) mg/dL Lactic Acid 6.4 H (0.4-2.0) Calcium (8.4-10.2) mg/dL Phosphorus (2.5-4.5) mg/dL Total Bilirubin (0.2-1.3) mg/dL Direct Bilirubin (0.0-0.4) mg/dL AST (14-36) U/L ALT (0-35) U/L Alkaline Phosphatase (38-126) U/L Troponin I 0.197 H* (0.000-0.033) ng/mL NT-Pro-B Natriuret Pep 61320 (<300) pg/mL Serum Total Protein (6.3-8.2) g/dL Albumin (3.5-5.0) g/dL Slides for Path Review 07/17/25 07/17/25 07/17/25 Range/Units 11:20 11:20 11:05 WBC 9.9 (3.98-10.04) x10^3/uL RBC 4.46 (3.93-5.22) x10^6/uL Hgb 11.1 L (11.2-15.7) g/dL Hct 39.1 (34.1-44.9) % MCV 87.7 (79.4-94.8) fL MCH 24.9 L (25.6-32.2) pg MCHC 28.4 L (32.2-35.5) g/dL RDW 22.5 H (11.7-14.4) % Plt Count 117 L (182-369) x10^3/uL MPV 10.1 (9.4-12.3) fL Gran % 77.2 H (34.0-71.1) % Immature Gran % (Auto) 0.4 (0.001-0.429) % Nucleat RBC Rel Count 0.4 H (0.00-0.2) % Eos # (Auto) 0 L (0.04-0.36) x10^3/uL Immature Gran # (Auto) 0.04 H (0.001-0.031) x10^3u/L Absolute Lymphs (auto) 1.16 L (1.18-3.74) x10^3/uL Absolute Monos (auto) 1.04 H (0.24-0.86) x10^3/uL Absolute Nucleated RBC 0.04 H (0.00-0.012) x10^3u/L Lymphocytes % 11.7 L (19.3-51.7) % Monocytes % 10.5 (4.7-12.5) % Eosinophils % 0.0 L (0.7-5.8) % Basophils % 0.2 (0.1-1.2) % Absolute Granulocytes 7.62 H (1.56-6.13) x10^3/uL Basophils # 0.02 (0.01-0.08) x10^3/uL pO2/FiO2 Ratio % VBG pH (7.32-7.42) VBG pCO2 at Pat Temp (42-55) mm/Hg VBG pO2 at Pat Temp (25-40) mm/Hg VBG HCO3 (22-28) meq/L VBG O2 Sat (Chiquita) (95-100) VBG Base Excess (-2.0-2.0) VBG Hemoglobin VBG Carboxyhemoglobin (0.0-6.9) % T HGB POC Potassium (3.5-5.1) Sodium 128 L (135-145) mmol/L Potassium 7.0 H* (3.5-5.1) mmol/L Chloride 100 (98-107) mmol/L Carbon Dioxide 6 L* (22-30) mmol/L Anion Gap 29.0 H (5-15) MEQ/L BUN 60 H (7-17) mg/dL Creatinine 6.97 H (0.52-1.04) mg/dL Estimated GFR 5.8 ML/MIN Glucose 109 H (74-106) mg/dL POC Glucometer 103 (74 to 106) mg/dL Lactic Acid (0.4-2.0) Calcium 8.2 L (8.4-10.2) mg/dL Phosphorus 7.1 H (2.5-4.5) mg/dL Total Bilirubin 1.40 H (0.2-1.3) mg/dL Direct Bilirubin 1.1 H (0.0-0.4) mg/dL AST 56 H (14-36) U/L ALT 29 (0-35) U/L Alkaline Phosphatase 99 (38-126) U/L Troponin I (0.000-0.033) ng/mL NT-Pro-B Natriuret Pep (<300) pg/mL Serum Total Protein 6.0 L (6.3-8.2) g/dL Albumin 3.2 L (3.5-5.0) g/dL Slides for Path Review YES - Progress Progress Note: 07/17/25 10:49 She is in distress. She does have the altered mental status but her Accu-Chek is lower than it was for EMS. I have ordered 1 amp dextrose I and then serial rechecks of the Accu-Chek are anticipated. She does have the bilateral leg edema. She is uncertain if she has had a history of heart failure but has had prior cardiac stents she does have the bilateral edema and she is on furosemide. I had completed the bedside ultrasound she did have some slight A lines but also no significant B-lines. Because she has the edema I will order 40 mg Lasix IV once but I am uncertain if she is having heart failure or COPD exacerbation or if this is simply hypoglycemic episode. Additional testing to include troponin, chemistries, BN peptide, portable chest x-ray, bilateral venous Dopplers, also to include blood count. 07/17/25 11:29 Her venous pH is 7.20 and her lactic acid was elevated at 6.4. I have ordered 1 g ceftriaxone IV because she does have penicillin allergy and is not a candidate for Zosyn. However, EMS has already transferred her to the [facility] and she is being wheeled out of the ER department to go to [facility] for STEMI equivalent with new onset left bundle branch block. She is more alert now after having the IV dextrose Labs are pending at this time Because she is already leaving the department portable chest x-ray is not able to be accomplished, additionally venous Dopplers are not able to be accomplished 07/17/25 11:38 With the ECG being STEMI equivalent with new interval BBB, transfer center was called at [facility] in [place] and under the STEMI protocol she was auto accepted. Dr. Vargas was the accepting provider Blood Culture(s) Obtained: No Medical Desision Making - Discussion of managment Care discussed with:: specialist (Auto accepted for STEMI equivalent at [facility]) Reviewed:: Test results - Departure Departure Disposition: Transfer (Transfer for STEMI equivalent new bundle branch block) Clinical Impression: COPD (chronic obstructive pulmonary disease), Acidosis, Elevated lactic acid level Condition: Serious Critical Care Time: Yes Critical Care Time(excluding separately billable procedures): Critical 30-74 mins Referrals: AVA CORONEL NP [Primary Care Provider, [facility]] - Follow up/PCP as directed Instructions: Chronic Obstructive Pulmonary Disease
[2025-07-17] MEDS: Lactated Ringers 500 ML IV ONE ×2 (11:04→11:05)
[2025-07-17] MEDS ORDERED: Dopamine 400 MG/D5W 250ML PREMIX 250 ML IV PRN (11:12)
[2025-07-17] MEDS ORDERED: Dopamine 400 MG/D5W 250ML PREMIX 250 ML IV ONE (11:13)
[2025-07-17] MEDS ORDERED: HEPARIN 5000 UNITS/0.5 ML (HIGH RISK MED) ONE (11:14)
[2025-07-17 11:25] LABS: BASOPHIL % 0.2 % (0.1-1.2); Basophil (Absolute #) 0.02 x10^3/uL (0.01-0.08); Eosinophil (Absolute #) 0 x10^3/uL (0.04-0.36); Hematocrit 39.1 % (34.1-44.9); Hemoglobin 11.1 g/dL (11.2-15.7); IMMATURE GRAN # 0.04 x10^3u/L (0.001-0.031); IMMATURE GRAN % 0.4 % (0.001-0.429); Lymphocyte (Absolute #) 1.16 x10^3/uL (1.18-3.74); Mean Corpuscular Hemoglobin 24.9 pg (25.6-32.2); Mean Corpuscular Hgb Concent. 28.4 g/dL (32.2-35.5); Monocyte (Absolute #) 1.04 x10^3/uL (0.24-0.86); NUCLEATED RBC # 0.04 x10^3u/L (0.00-0.012); NUCLEATED RBC % 0.4 % (0.00-0.2); Platelet Count 117 x10^3/uL (182-369); Red Blood Count 4.46 x10^6/uL (3.93-5.22); White Blood Count 9.9 x10^3/uL (3.98-10.04)
[2025-07-17] MEDS ORDERED: ROCEPHIN 1 GM / 100 ML NaCl 1 GM/100 ML IVPB IV ONE (11:27)
[2025-07-17] MEDS: HEPARIN 5000 UNITS/0.5 ML (HIGH RISK MED) IV ONE (11:28)
[2025-07-17 11:36] LABS: VBG BASE EXCESS -16.3 (-2.0-2.0); VBG CARBOXYHEMOGLOBIN 4.1 % T HGB (0.0-6.9); VBG FIO2 40.0 %; VBG HCO3- 10.2 meq/L (22-28); VBG HEMOGLOBIN 11.8; VBG O2 SATURATION 64.2 (95-100); VBG PCO2 26.0 mm/Hg (42-55); VBG PO2 42.0 mm/Hg (25-40)
[2025-07-17 11:37] LABS: VBG POTASSIUM 7.1 (3.5-5.1)
[2025-07-17 12:04] LABS: TROPONIN 0.197 ng/mL (0.000-0.033)
[2025-07-17 12:17] LABS: Slide Review 1 YES
[2025-07-17 12:18] LABS: Calcium 8.2 mg/dL (8.4-10.2); Creatinine 1 6.97 mg/dL (0.52-1.04); EST GLOMERULAR FILTRATION RATE 5.8 ML/MIN; Glucose 109.0 mg/dL (74-106); SGOT/AST 56.0 U/L (14-36); SGPT/ALT 29.0 U/L (0-35); Total Protein 6.0 g/dL (6.3-8.2)
[2025-07-17 12:19] LABS: Potassium 7.0 mmol/L (3.5-5.1)
[2025-07-17 12:20] LABS: Carbon Dioxide 6.0 mmol/L (22-30)
[2025-07-17 16:36] VITALS: PULSE 102; RESP 36; TEMP 97.9; O2SAT 97
== END 2025-07-17 13:00 | disposition short-term general hospital (02) ==
LOC: ED 10:40
DX: I21.3 ST elevation (STEMI) myocardial infarction of unspecified site (principal); J44.9 Chronic obstructive pulmonary disease, unspecified; E87.21 Acute metabolic acidosis; I44.7 Left bundle-branch block, unspecified; R06.02 Shortness of breath; I10 Essential (primary) hypertension; E11.9 Type 2 diabetes mellitus without complications; Z79.02 Long term (current) use of antithrombotics/antiplatelets; Z79.84 Long term (current) use of oral hypoglycemic drugs; Z79.899 Other long term (current) drug therapy